=== PATIENT | male | born 1970 | race Caucasian/White ===

== ENCOUNTER 2020-06-23 16:00 | Outpatient (CLI) | payer BC, SELFPAY ==
--- NOTE | ~2020-06-23 | XR_ITS ---
EXAMINATION: XR knee RT min 4V EXAM DATE: 06/23/2020 16:26 INDICATION: No known recent injury provided at this time. Pain of the right knee. TECHNIQUE: Right knee lateral, frontal AP, frontal PA tunnel, sunrise projections. There is no prior study for comparison. FINDINGS: No evidence osteochondral defect or joint body in the right knee joint. No joint effusio n. There are no acute fractures or dislocations identified. There is no subcutaneous gas. The soft tissue is unremarkable. There are no radiopaque foreign bodies. Joint spaces are maintained. IMPRESSION: 1. Unremarkable right knee exam. Reviewed, dictated and finalized at location A.
== END 2020-06-23 16:01 | disposition home or self-care (01) ==
PROVIDERS: PCP Internal Medicine; Visit Provider Internal Medicine
DX: M25.561 Pain in right knee (principal)
CPT/HCPCS: 73564

== ENCOUNTER 2023-07-30 14:03 | Outpatient (NON) | payer BC, SELFPAY | END 2023-07-30 14:04 | disposition home or self-care (01) | LOC: ANHLAB 07-31 14:05 | PROVIDERS: PCP Internal Medicine; Visit Provider Nurse Practitioner | DX: D48.5 Neoplasm of uncertain behavior of skin (principal); D22.39 Melanocytic nevi of other parts of face; L57.0 Actinic keratosis | CPT/HCPCS: 88305 ==

== ENCOUNTER 2023-07-31 08:04 | Outpatient (CLI) | payer BC, SELFPAY ==
--- NOTE | ~2023-07-31 | CT_ITS ---
EXAMINATION: CT abdomen pelvis w con INDICATION: Unspecified abdominal pain TECHNIQUE: Computed tomographic images of the abdomen and pelvis were obtained after the administrati on of 100 cc of Omnipaque 350 intravenous contrast. The dose-length product (DLP) was 1098.62 mGy-cm. Automated exposure control and iterative reconstruction technique were employed. COMPARISON: None available FINDINGS: Minimal dependent atelectasis is present in the lung bases. The heart size is normal. There is a 3 mm nodule of the right middle lobe. There is calcified coronary artery atherosclerosis. Mild bilateral gynecomastia is noted. The liver is diffusely low in attenuation when compared with the spl een, consistent with hepatic steatosis. The spleen, pancreas, gallbladder, and adrenal glands are nor mal. Cysts of the kidneys measure up to 10 mm on the right. The appendix is normal. No pathologically enlarged abdominal or pelvic lymph nodes are identified. No free intraperitoneal gas or evidence of bowel obstruction. Colonic diverticulosis is present without evidence of diverticulitis. There is mil d lumbar spondylosis. There is a 10 mm x 6 mm focus of enhancement in the right iliac is muscle of un clear significance (image 185), possibly reflecting prior trauma. IMPRESSION: 1. No CT correlate for the patient's symptoms. Reviewed, dictated and finalized at location F. [employer]IN[employer]
[2023-07-31 08:51] LABS: Estimated Glomerular Filt Rate > 60
== END 2023-07-31 08:05 | disposition home or self-care (01) ==
PROVIDERS: PCP Internal Medicine; Visit Provider Internal Medicine
DX: R10.9 Unspecified abdominal pain (principal); R19.7 Diarrhea, unspecified
CPT/HCPCS: 74177; Q9967

== ENCOUNTER 2023-08-20 07:00 | Outpatient (NON) | payer BC, SELFPAY | END 2023-08-20 07:01 | disposition home or self-care (01) | PROVIDERS: PCP Internal Medicine; Visit Provider Nurse Practitioner | DX: L57.8 Other skin changes due to chronic exposure to nonionizing radiation (principal) | CPT/HCPCS: 88305 ==

== ENCOUNTER 2023-11-06 07:57 | Outpatient (CLI) | payer BC, SELFPAY ==
--- NOTE | ~2023-11-06 | XR_ITS ---
Left Knee Technique: AP, lateral, and sunrise views were obtained. Clinical History: Pain Findings: No fracture or dislocation is seen. Osseous alignment is anatomic. Joint spaces are preserv ed without degenerative or erosive change. Soft tissues are unremarkable. No joint effusion is seen. Impression: Unremarkable left knee radiographs. Reviewed, dictated and finalized at location . T SEALER Impression: Unremarkable left knee radiographs.
== END 2023-11-06 07:58 | disposition home or self-care (01) ==
PROVIDERS: PCP Internal Medicine; Visit Provider Internal Medicine
DX: M25.462 Effusion, left knee (principal)
CPT/HCPCS: 73562

== ENCOUNTER 2024-10-30 07:50 | Outpatient (CLI) | payer BC, SELFPAY ==
--- NOTE | ~2024-10-30 | XR_ITS ---
EXAMINATION: XR UGIAC w barium swallow DATE: 10/30/2024 08:58 INDICATION: Generalized abdominal pain TECHNIQUE: The patient drank thick barium, gas-producing crystals, and thin barium. Fluoroscopic spot radiographs of the hypopharynx, esophagus, stomach and proximal small bowel were obtained. A total o f 1184 images were recorded. Fluoroscopy exposure time was 1.7 minutes. Total DAP was 14.035 Gycm^2 COMPARISON: None. FINDINGS: The pharynx is symmetric and without evidence of mass lesion or mucosal irregularity. The esophagus i s normal without mass or stricture. Esophageal motility is normal. There is no hiatal hernia. There w as no gastroesophageal reflux with provocative maneuvers. The stomach and proximal small bowel are no rmal. IMPRESSION: 1. Normal esophagram and upper GI study. Reviewed, dictated and finalized at location A. CIATE CURATOR
--- OUTSIDE RECORDS SUMMARY | 2024-10-30 07:56 | XMS_ITS | Referral Summary ---
Author Organization [facility] Address [address] [place] [address] Care Team Providers Care Flavorings Compounder Name Role Phone Jayant Flores MD Primary Care Provider [phone] Allergies No known active allergies Medications cabergoline (DOSTINEX) 0.5 mg tablet Take 0.5 mg by mouth 2 (two) times a week Saturday and Saturday 1 Active diltiazem (TIAZAC) 240 mg 24 hr capsule Take 480 mg by mouth nightly Active Synthroid 175 mcg tablet Take 175 mcg by mouth every morning 1 Active losartan (COZAAR) 100 mg tablet Take 100 mg by mouth nightly 1 Active omeprazole (PriLOSEC) 20 mg capsule Take 20 mg by mouth nightly 1 Active rosuvastatin (CRESTOR) 10 mg tablet Take 10 mg by mouth nightly 1 Active Active Problems No known active problems Social History Tobacco Use Types Packs/Day Years Used Date Smoking Tobacco: Unknown Sex and Gender Information Value Date Recorded Sex Assigned at Not on file Legal Sex Male 6:00 PM 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 Gender Identity Not on file Sexual Orientation Not on file Last Filed Vital Signs Vital Sign Reading Time Taken Comments Blood Pressure 122/93 08/30/2021 1:22 PM [employer]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 Pulse 70 08/30/2021 1:22 PM [employer]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 Temperature 36.7 C (98.1 F) 08/30/2021 9: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
--- OUTSIDE RECORDS SUMMARY | 2024-10-30 07:56 | XMS_ITS | Patient Health Summary ---
Author Organization [facility] Address [address] [place] [address] Care Team Providers Care Machine Straw Hat Presser Name Role Phone Juliana Tran MD Primary Care Provider [phone] Arlene Smith APRN-REALTIME REPORTER Unavailable Note from [facility],non-owned Affiliates and Associated Physician Practices is amultiple site organization consisting of ambulatory clinics and hospital sitesin [place], [place], [place] and [place]. This disclosure is being madepursuant to the Care Everywhere program and may not contain all information available regarding this patient. Last updated 18.[facility] Allergies * Lisinopril(Cough) -Medium Criticality Medications * Be aware that medications may not be up to date on this document. Alwaysverify current medications with the patient. * diltiazem coated beads 24hr (CARDIZEM CD) 240 MG capsule Take 1 (one) capsule by mouth once daily * omeprazole (PRILOSEC) 20 MG capsule Take 1 (one) capsule by mouth daily before breakfast * losartan (COZAAR) 100 MG tablet Take 1 (one) tablet by mouth once daily * cabergoline (DOSTINEX) 0.5 MG tablet(Started 07/06/2015) 1 tab twice a week 1 refill left * levothyroxine (SYNTHROID) 175 MCG tablet(Started 01/21/2017) Take 1 (one) tablet by mouth daily before breakfast * rosuvastatin (CRESTOR) 10 MG tablet(Started 07/17/2017) Take 1 (one) tablet by mouth at bedtime * testosterone (ANDROGEL) 20.25 MG/ACT (1.62%) gel(Started 04/14/2021) Use 3 (three) Pump as instructed once daily * cabergoline (Dostinex) 0.5 MG tablet(Started 07/01/2023) TAKE 1 TABLET EVERY 3 DAYS FOR DISORDER WITH ELEVATED LEVELS OF PROLACTIN IN THE BLOOD 4 refills by 06/30/2024 Active Problems Problem Noted Date Diagnosed Date 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 (FLUZONE; FLULAVAL; FLUARIX; AFLURIA QUADRIVALENT; 6MO+), 0.5 ML (IIV4)(Given 06/28/2020) Social History Tobacco Use Types Packs/Day Years Used Date Smoking Tobacco: Former Cigarettes Q uit: 10/14/2004 Smokeless Tobacco: Never Tobacco Cessation:Counseling Given: Not Answered Alcohol Use Standard Drinks/Week Comments Yes 0 (1 standard drink = 0.6 oz pur e alcohol) rarely Sex and Gender Information Value Date Recorded Sex Assigned at Not on file Gender Identity Not on file Sexual Orientation Not on file Last Filed Vital Signs Vital Sign Reading Time Taken Comments Blood Pressure 124/70 09/26/2023 9:13 AM ELECTRIC KNIFE OPERATOR Pulse 74 11/21/2014 6:29 PM CDT Temperature 36.7 C (98 F) 11/21/2014 6:29 PM CDT Respiratory Rate 18 11/21/2014 6:29 PM CDT Oxygen Saturation 99% 11/21/2014 6:29 PM CDT Inhaled Oxygen Concentration - - Weight 114.8 kg (253 lb) 09/26/2023 9:13 AM ELECTRIC KNIFE OPERATOR Height 182.9 cm (6') 09/26/2023 9:13 AM ELECTRIC KNIFE OPERATOR Body Mass Index 34.31 09/26/2023 9:13 AM ELECTRIC KNIFE OPERATOR Procedures * PROLACTIN(Performed 10/03/2023) Performed for Hyperprolactinemia (HCC), Pituitary macroadenoma (HCC), Acquired hypothyroidism, Malehypogonadism * CBC W AUTO DIFFERENTIAL(Performed 10/03/2023) Performed for Hyperprolactinemia (HCC), Pituitary macroadenoma (HCC), Acquired hypothyroidism, Malehypogonadism * PROSTATE SPECIFIC ANTIGEN SCREEN(Performed 10/03/2023) Performed for Hyperprolactinemia (HCC), Pituitary macroadenoma (HCC), Acquired hypothyroidism, Malehypogonadism * TESTOSTERONE TOTAL(Performed 10/03/2023) Performed for Hyperprolactinemia (HCC), Pituitary macroadenoma (HCC), Acquired hypothyroidism, Malehypogonadism * T4 FREE(Performed 10/03/2023) Performed for Hyperprolactinemia (HCC), Pituitary macroadenoma (HCC), Acquired hypothyroidism, Malehypogonadism * TSH(Performed 10/03/2023) Performed for Hyperprolactinemia (HCC), Pituitary macroadenoma (HCC), Acquired hypothyroidism, Malehypogonadism * COMPREHENSIVE METABOLIC PANEL(Performed 10/03/2023) Performed for Hyperprolactinemia (HCC), Pituitary macroadenoma (HCC), Acquired hypothyroidism, Malehypogonadism * CBC W AUTO DIFFERENTIAL(Performed 03/26/2023) Performed for Hyperprolactinemia (HCC), Pituitary macroadenoma (HCC), Acquired hypothyroidism, Malehypogonadism * TSH(Performed 03/26/2023) Performed for Hyperprolactinemia (HCC), Pituitary macroadenoma (HCC), Acquired hypothyroidism, Malehypogonadism * T4 FREE(Performed 03/26/2023) Performed for Hyperprolactinemia (HCC), Pituitary macroadenoma (HCC), Acquired hypothyroidism, Malehypogonadism * PROLACTIN(Performed 03/26/2023) Performed for Hyperprolactinemia (HCC), Pituitary macroadenoma (HCC), Acquired hypothyroidism, Malehypogonadism * PROSTATE SPECIFIC ANTIGEN SCREEN(Performed 03/26/2023) Performed for Hyperprolactinemia (HCC), Pituitary macroadenoma (HCC), Acquired hypothyroidism, Malehypogonadism * TESTOSTERONE TOTAL(Performed 03/26/2023) Performed for Hyperprolactinemia (HCC), Pituitary macroadenoma (HCC), Acquired hypothyroidism, Malehypogonadism * TESTOSTERONE TOTAL(Performed 04/16/2022) Performed for Hyperprolactinemia (HCC), Pituitary macroadenoma (HCC), Acquired hypothyroidism * PROLACTIN(Performed 04/16/2022) Performed for Hyperprolactinemia (HCC), Pituitary macroadenoma (HCC), Acquired hypothyroidism * T4 FREE(Performed 04/16/2022) Performed for Hyperprolactinemia (HCC), Pituitary macroadenoma (HCC), Acquired hypothyroidism * CBC W AUTO DIFFERENTIAL(Performed 04/16/2022) Performed for Acquired hypothyroidism, Male hypogonadism * TSH(Performed 04/16/2022) Performed for Hyperprolactinemia (HCC), Pituitary macroadenoma (HCC), Acquired hypothyroidism * T4 FREE(Performed 12/12/2021) Performed for Hyperprolactinemia (HCC), Acquired hypothyroidism, Hypogonadism in male * TSH(Performed 12/12/2021) Performed for Hyperprolactinemia (HCC), Acquired hypothyroidism, Hypogonadism in male * PROLACTIN(Performed 12/12/2021) Performed for Hyperprolactinemia (HCC), Acquired hypothyroidism, Hypogonadism in male * TESTOSTERONE TOTAL(Performed 12/12/2021) Performed for Hyperprolactinemia (HCC), Acquired hypothyroidism, Hypogonadism in male * PROSTATE SPECIFIC ANTIGEN SCREEN(Performed 12/12/2021) Performed for Hyperprolactinemia (HCC), Acquired hypothyroidism, Hypogonadism in male * PROLACTIN(Performed 05/04/2021) Performed for Hyperprolactinemia (HCC), Hypogonadism in male * PROSTATE SPECIFIC ANTIGEN SCREEN(Performed 05/04/2021) Performed for Hyperprolactinemia (HCC), Hypogonadism in male * LAB RESULTS ORDER(Performed 04/04/2021) * TESTOSTERONE TOTAL (EXTERNAL RESULT ENTRY)(Performed 04/04/2021) * TSH (EXTERNAL RESULT ENTRY)(Performed 04/04/2021) * PROSTATE SPECIFIC ANTIGEN SCREEN(Performed 09/29/2020) Performed for Pituitary macroadenoma (HCC), Hyperprolactinemia (HCC), Acquired hypothyroidism * CBC W AUTO DIFFERENTIAL(Performed 09/29/2020) Performed for Pituitary macroadenoma (HCC), Hyperprolactinemia (HCC), Acquired hypothyroidism * TESTOSTERONE TOTAL(Performed 09/29/2020) Performed for Pituitary macroadenoma (HCC), Hyperprolactinemia (HCC), Acquired hypothyroidism * T3 FREE(Performed 09/29/2020) Performed for Pituitary macroadenoma (HCC), Hyperprolactinemia (HCC), Acquired hypothyroidism * T4 FREE(Performed 09/29/2020) Performed for Pituitary macroadenoma (HCC), Hyperprolactinemia (HCC), Acquired hypothyroidism * TSH(Performed 09/29/2020) Performed for Pituitary macroadenoma (HCC), Hyperprolactinemia (HCC), Acquired hypothyroidism * PROLACTIN(Performed 09/29/2020) Performed for Pituitary macroadenoma (HCC), Hyperprolactinemia (HCC), Acquired hypothyroidism * T3 FREE(Performed 10/07/2019) Performed for Hyperprolactinemia (HCC), Acquired hypothyroidism * PROLACTIN(Performed 10/07/2019) Performed for Hyperprolactinemia (HCC) * TSH(Performed 10/07/2019) Performed for Hyperprolactinemia (HCC), Acquired hypothyroidism * T4 FREE(Performed 10/07/2019) Performed for Hyperprolactinemia (HCC), Acquired hypothyroidism * TESTOSTERONE TOTAL(Performed 10/07/2019) Performed for Hyperprolactinemia (HCC), Hypogonadism in male * CBC W AUTO DIFFERENTIAL(Performed 04/06/2019) Performed for Hyperprolactinemia (HCC), Pituitary macroadenoma (HCC), Acquired hypothyroidism, Hypogonadism in male * PROLACTIN(Performed 04/06/2019) Performed for Hyperprolactinemia (HCC), Pituitary macroadenoma (HCC), Acquired hypothyroidism, Hypogonadism in male * PROSTATE SPECIFIC ANTIGEN SCREEN(Performed 04/06/2019) Performed for Hyperprolactinemia (HCC), Pituitary macroadenoma (HCC), Acquired hypothyroidism, Hypogonadism in male * TESTOSTERONE TOTAL(Performed 04/06/2019) Performed for Hyperprolactinemia (HCC), Pituitary macroadenoma (HCC), Acquired hypothyroidism, Hypogonadism in male * TSH(Performed 04/06/2019) Performed for Hyperprolactinemia (HCC), Pituitary macroadenoma (HCC), Acquired hypothyroidism, Hypogonadism in male * TESTOSTERONE TOTAL(Performed 10/06/2018) Performed for Hyperprolactinemia (HCC) * PROLACTIN(Performed 10/06/2018) Performed for Hypogonadism in male * T4 FREE(Performed 10/06/2018) Performed for Acquired hypothyroidism * TSH(Performed 10/06/2018) Performed for Acquired hypothyroidism * MRI PITUITARY AND BRAIN WWO CONT(Performed 04/26/2018) Performed for Pituitary macroadenoma (HCC) * PROLACTIN(Performed 04/01/2018) Performed for Hyperprolactinemia (HCC) * TESTOSTERONE TOTAL(Performed 04/01/2018) Performed for Hyperprolactinemia (HCC), Pituitary macroadenoma (HCC), Hypogonadism male * T4 FREE(Performed 04/01/2018) Performed for Hyperprolactinemia (HCC) * TSH(Performed 04/01/2018) Performed for Hyperprolactinemia (HCC) * COMPREHENSIVE METABOLIC PANEL(Performed 04/01/2018) Performed for Hyperprolactinemia (HCC) * TSH(Performed 12/03/2017) Performed for Hypothyroidism, unspecified type * T4 FREE(Performed 12/03/2017) Performed for Hypothyroidism, unspecified type * TESTOSTERONE TOTAL(Performed 10/02/2017) Performed for Hypogonadism in male * PROLACTIN(Performed 10/02/2017) Performed for Hyperprolactinemia (HCC) * T4 FREE(Performed 10/02/2017) Performed for Acquired hypothyroidism * TSH(Performed 10/02/2017) Performed for Acquired hypothyroidism * PROLACTIN(Performed 04/01/2017) Performed for Hyperprolactinemia (HCC), Pituitary macroadenoma (HCC) * TESTOSTERONE TOTAL(Performed 04/01/2017) Performed for Pituitary macroadenoma (HCC), Hypogonadism in male * T4 FREE(Performed 04/01/2017) Performed for Pituitary macroadenoma (HCC), Acquired hypothyroidism * TSH(Performed 04/01/2017) Performed for Pituitary macroadenoma (HCC), Acquired hypothyroidism * COMPREHENSIVE METABOLIC PANEL(Performed 04/01/2017) Performed for Pituitary macroadenoma (HCC) * PROLACTIN(Performed 10/08/2016) Performed for Pituitary macroadenoma (HCC) * PROSTATE SPECIFIC ANTIGEN SCREEN(Performed 10/08/2016) Performed for Hypogonadism in male * TESTOSTERONE TOTAL(Performed 10/08/2016) Performed for Pituitary macroadenoma (HCC) * TSH(Performed 10/08/2016) Performed for Pituitary macroadenoma (HCC), Acquired hypothyroidism * T4 FREE(Performed 10/08/2016) Performed for Pituitary macroadenoma (HCC), Acquired hypothyroidism * COMPREHENSIVE METABOLIC PANEL(Performed 10/08/2016) Performed for Pituitary macroadenoma (HCC) * TESTOSTERONE TOTAL(Performed 03/20/2016) Performed for Pituitary macroadenoma (HCC) * PROLACTIN(Performed 03/20/2016) Performed for Pituitary macroadenoma (HCC) * CBC W AUTO DIFFERENTIAL(Performed 03/20/2016) Performed for Pituitary macroadenoma (HCC) * MRI BRAIN WWO CONTRAST(Performed 03/13/2016) Performed for Pituitary macroadenoma (HCC) * CREATININE BLOOD - POINT OF CARE (IP)(Performed 03/13/2016) * T4 FREE(Performed 10/11/2015) * TSH(Performed 10/11/2015) * CBC W AUTO DIFFERENTIAL(Performed 10/11/2015) Performed for Pituitary macroadenoma (HCC) * PROSTATE SPECIFIC ANTIGEN SCREEN(Performed 10/11/2015) Performed for Pituitary macroadenoma (HCC) * TESTOSTERONE TOTAL(Performed 10/11/2015) Performed for Pituitary macroadenoma (HCC) * PROLACTIN(Performed 10/11/2015) Performed for Pituitary macroadenoma (HCC) * CORTISOL BLOOD(Performed 06/30/2015) Performed for Pituitary macroadenoma (HCC) * ACTH(Performed 06/30/2015) Performed for Pituitary macroadenoma (HCC) * PROLACTIN(Performed 06/30/2015) Performed for Pituitary macroadenoma (HCC) * PROSTATE SPECIFIC ANTIGEN SCREEN(Performed 06/30/2015) Performed for Other testicular hypofunction * LAB RESULTS ORDER(Performed 03/18/2015) * LIPID PROFILE(Performed 09/16/2014) * PROLACTIN(Performed 09/16/2014) Performed for Benign Neoplasm Of Pituitary Gland And Craniopharyngeal Duct (Pouch) (Hcc), Other AndUnspecified Anterior Pituitary Hyperfunction (Hcc) * T4 FREE(Performed 09/16/2014) Performed for Unspecified hypothyroidism * TSH(Performed 09/16/2014) Performed for Unspecified hypothyroidism * T4 FREE(Performed 07/13/2014) Performed for Unspecified hypothyroidism * TSH(Performed 07/13/2014) Performed for Unspecified hypothyroidism * PROLACTIN(Performed 03/26/2014) Performed for Pituitary tumor * MRI BRAIN WWO CONTRAST(Performed 11/18/2013) Performed for Benign Neoplasm Of Pituitary Gland And Craniopharyngeal Duct (Pouch) (Hcc) * CREATININE BLOOD - POINT OF CARE (IP)(Performed 11/18/2013) * PROSTATE SPECIFIC ANTIGEN SCREEN(Performed 09/21/2013) * PROLACTIN(Performed 09/21/2013) * TESTOSTERONE TOTAL(Performed 09/21/2013) * LIPID PROFILE(Performed 09/21/2013) * COMPREHENSIVE METABOLIC PANEL(Performed 09/21/2013) * TSH+FREE T4(Performed 09/21/2013) * CBC W AUTO DIFFERENTIAL(Performed 09/21/2013) * PROLACTIN(Performed 11/25/2012) * CARDIAC RHYTHM STRIP ORDER(Performed 10/15/2012) * EXCISION MASS OR TUMOR HEAD/NECK/SCALP(Performed 10/14/2012) Performed for Tumor of soft tissue of neck * PATHOLOGY TISSUE EXAM (STL)(Performed 10/14/2012) Performed for Mass * MRI NECK SOFT TISSUE WWO CONT(Performed 09/24/2012) Performed for Lipoma of other skin and subcutaneous tissue * MRI BRAIN WWO CONTRAST(Performed 09/24/2012) Performed for Other and unspecified anterior pituitary hyperfunction (HCC) * CREATININE BLOOD - POINT OF CARE (IP)(Performed 09/24/2012) * MRI BRAIN WWO CONTRAST(Performed 10/16/2011) Performed for Benign neoplasm of pituitary gland and craniopharyngeal duct (pouch) (HCC) * CREATININE BLOOD - POINT OF CARE (IP)(Performed 10/16/2011) * ACT - POINT OF CARE(Performed 10/16/2011) * LAB HISTORICAL RESULTS-ONBASE(Performed 07/26/2011) * LAB HISTORICAL RESULTS-ONBASE(Performed 07/26/2011) * LAB HISTORICAL RESULTS-ONBASE(Performed 07/26/2011) * MRI BRAIN WWO CONTRAST(Performed 08/15/2010) Performed for Other and unspecified anterior pituitary hyperfunction (HCC) * CREATININE BLOOD - POINT OF CARE (IP)(Performed 08/15/2010) * MRI BRAIN WWO CONTRAST(Performed 01/05/2010) Performed for Benign Neoplasm of Pituitary Gland and Craniopharyngeal Duct (Pouch) (HCC) * MRI BRAIN WWO CONTRAST(Performed 06/09/2009) Performed for Benign Asad Pituitary * CT IAC WO CONTRAST(Performed 06/09/2009) Performed for Benign Asad Pituitary * EVOKED POTENTIAL RESPONSE(Performed 12/30/2008) * VISUAL EVOKED POTENTIAL TEST(Performed 12/29/2008) Results * TESTOSTERONE TOTAL (10/03/2023 8:42 AM ELECTRIC KNIFE OPERATOR) Only the most recent of15 resultswithin the time period is included. Testosterone 270 264 - 916 ng/dL [facility] ACCOUNT BILL Comment: Adult male reference interval is based on a population of healthy nonobese males (BMI <30) between 19 and 39 years old. elaine Leal.al. JCEM 2017,102;6267-2888. PMID: [id number]. FASTING Blood BLOOD SPECIMEN / Unknown 10/03/2023 8:42 AM ELECTRIC KNIFE OPERATOR 10/03/2023 Narrative Resulting Agency Comment Lab Testing performed at: [facility] [address] [phone] Minoo Craft MD LAB - CHEMISTRY ORD ERABLES Performing Organization Address City/[facility] Co de Phone Number [facility] ACCOUNT BILL [address] [place] [address] * (ABNORMAL) PROLACTIN (10/03/2023 8:42 AM ELECTRIC KNIFE OPERATOR) Only the most recent of20 resultswithin the time period is included. Prolactin 26.8(H) 3.6 - 25.2 ng/mL [facility] ACCOUNT BILL Comment:FASTING Blood BLOOD SPECIMEN / Unknown 10/03/2023 8:42 AM ELECTRIC KNIFE OPERATOR 10/03/2023 Narrative Resulting Agency Comment Lab Testing performed at: [facility] [address] [phone] Minoo Craft MD LAB - CHEMISTRY ORD ERABLES Performing Organization Address [facility] Co de Phone Number [facility] ACCOUNT BILL [address] [place] [address] * CBC WITH DIFFERENTIAL (10/03/2023 8:42 AM ELECTRIC KNIFE OPERATOR) Only the most recent of8 resultswithin the time period is included. WBC 5.1 3.4 - 10.8 x10E3/uL [facility] ACCOUNT BILL RBC 4.76 4.14 - 5.80 x10E6/uL [facility] ACCOUNT BILL Hemoglobin 14.5 13.0 - 17.7 g/dL [facility] ACCOUNT BILL Hematocrit 42.5 37.5 - 51.0 % [facility] ACCOUNT BILL MCV 89 79 - 97 fL [facility] ACCOUNT BILL MCH 30.5 26.6 - 33.0 pg [facility] ACCOUNT BILL MCHC 34.1 31.5 - 35.7 g/dL [facility] ACCOUNT BILL RDW 12.7 11.6 - 15.4 % [facility] ACCOUNT BILL Platelet Count 304 150 - 450 x10E3/uL [facility] ACCOUNT BILL Granulocytes % 52 Not Estab. % [facility] ACCOUNT BILL Lymphocytes % 34 Not Estab. % [facility] ACCOUNT BILL Monocytes % 11 Not Estab. % [facility] ACCOUNT BILL Eosinophils % 2 Not Estab. % [facility] ACCOUNT BILL Basophils % 1 Not Estab. % [facility] ACCOUNT BILL Immature Cells NOT AVAILABLE [facility] ACCOUNT BILL Comment:Result cannot be obt ained for this observation. Granulocytes Absolute 2.6 1.4 - 7.0 x10E3/uL [facility] ACCOUNT BILL Lymphocytes Absolute 1.7 0.7 - 3.1 x10E3/uL [facility] ACCOUNT BILL Monocytes Absolute 0.6 0.1 - 0.9 x10E3/uL [facility] ACCOUNT BILL Eosinophils Absolute 0.1 0.0 - 0.4 x10E3/uL [facility] ACCOUNT BILL Basophils Absolute 0.1 0.0 - 0.2 x10E3/uL [facility] ACCOUNT BILL Immature Granulocytes 0 Not Estab. % [facility] ACCOUNT BILL Immature Granulocytes Absolute 0.0 0.0 - 0.1 x10E3/uL [facility] ACCOUNT BILL nRBC NOT AVAILABLE [facility] ACCOUNT BILL Comment:Result cannot be obt ained for this observation. Comment Hematology NOT AVAILABLE [facility] ACCOUNT BILL Comment: FASTING Result cannot be obtained for this observation. Blood BLOOD SPECIMEN / Unknown 10/03/2023 8:42 AM ELECTRIC KNIFE OPERATOR 10/03/2023 Narrative Resulting Agency Comment Lab Testing performed at: [facility] [address] [facility] [phone] Minoo Craft MD LAB - HEMATOLOGY OR DERABLES [facility] ACCOUNT BILL [address] [place] [address] * (ABNORMAL) COMPREHENSIVE METABOLIC PANEL (10/03/2023 8:42 AM ELECTRIC KNIFE OPERATOR) Only the most recent of5 resultswithin the time period is included. Glucose 105(H) 70 - 99 mg/dL [facility] ACCOUNT BILL BUN 13 6 - 24 mg/dL [facility] ACCOUNT BILL Creatinine 1.39(H) 0.76 - 1.27 mg/dL [facility] ACCOUNT BILL eGFR by CKD-EPI 61 >59 mL/min/1.7 3 [facility] ACCOUNT BILL BUN/Creatinine Ratio 9 9 - 20 [facility] ACCOUNT BILL Sodium 139 134 - 144 mmol/L [facility] ACCOUNT BILL Potassium 4.4 3.5 - 5.2 mmol/L [facility] ACCOUNT BILL Chloride 101 96 - 106 mmol/L [facility] ACCOUNT BILL CO2 23 20 - 29 mmol/L [facility] ACCOUNT BILL Calcium 9.5 8.7 - 10.2 mg/dL [facility] ACCOUNT BILL Protein Total 7.0 6.0 - 8.5 g/dL [facility] ACCOUNT BILL Albumin 4.1 3.8 - 4.9 g/dL [facility] ACCOUNT BILL Globulin Total 2.9 1.5 - 4.5 g/dL [facility] ACCOUNT BILL Albumin/Globulin Ratio 1.4 1.2 - 2.2 [facility] ACCOUNT BILL Bilirubin Total 0.4 0.0 - 1.2 mg/dL [facility] ACCOUNT BILL Alkaline Phosphatase 76 44 - 121 IU/L [facility] ACCOUNT BILL AST 24 0 - 40 IU/L [facility] ACCOUNT BILL ALT 27 0 - 44 IU/L [facility] ACCOUNT BILL Comment:FASTING Blood BLOOD SPECIMEN / Unknown 10/03/2023 8:42 AM ELECTRIC KNIFE OPERATOR 10/03/2023 Narrative Resulting Agency Comment Lab Testing performed at: [facility] [address] [facility] [phone] Minoo Craft MD LAB - CHEMISTRY ORD ERABLES [facility] ACCOUNT BILL [address] [place] [address] * PROSTATE SPECIFIC ANTIGEN SCREEN (10/03/2023 8:42 AM ELECTRIC KNIFE OPERATOR) Only the most recent of10 resultswithin the time period is included. PSA 1.5 0.0 - 4.0 ng/mL [facility] ACCOUNT BILL Comment: Leila ECLIA methodology. . According to the [employer], Serum PSA should decrease and remain at undetectable levels after radical prostatectomy. The AUA defines biochemical recurrence as an initial PSA value 0.2 ng/mL or greater followed by a subsequent confirmatory PSA value 0.2 ng/mL or greater. Values obtained with different assay methods or kits cannot be used interchangeably. Results cannot be interpreted as absolute evidence of the presence or absence of malignant disease. FASTING Blood BLOOD SPECIMEN / Unknown 10/03/2023 8:42 AM ELECTRIC KNIFE OPERATOR 10/03/2023 Narrative Resulting Agency Comment [facility] [address] [facility] [phone] Minoo Craft MD LAB - CHEMISTRY ORD ERABLES [facility] ACCOUNT BILL [address] [place] [address] * TSH (10/03/2023 8:42 AM ELECTRIC KNIFE OPERATOR) Only the most recent of16 resultswithin the time period is included. TSH 2.810 0.450 - 4.500 uIU/mL [facility] ACCOUNT BILL Comment:FASTING Blood BLOOD SPECIMEN / Unknown 10/03/2023 8:42 AM ELECTRIC KNIFE OPERATOR 10/03/2023 Narrative Resulting Agency Comment Lab Testing performed at: [facility] [place] [facility] [phone] Minoo Craft MD LAB - CHEMISTRY ORD ERABLES Performing Organization Address City/[facility] Co de Phone Number [facility] ACCOUNT BILL [address] [place] [address] * T4 FREE (10/03/2023 8:42 AM ELECTRIC KNIFE OPERATOR) Only the most recent of15 resultswithin the time period is included. T4 Free 1.33 0.82 - 1.77 ng/dL [facility] ACCOUNT BILL Comment:FASTING Blood BLOOD SPECIMEN / Unknown 10/03/2023 8:42 AM ELECTRIC KNIFE OPERATOR 10/03/2023 Narrative Resulting Agency Comment Lab Testing performed at: [facility] [address] [facility] [phone] Minoo Craft MD LAB - CHEMISTRY ORD ERABLES [facility] ACCOUNT BILL [address] [place] [address] * (ABNORMAL) TESTOSTERONE TOTAL (EXTERNAL RESULT ENTRY) (04/04/2021) Testosterone (EXTERNAL RESULT) 191(A) 225 - 972 NG/DL Blood BLOOD SPECIMEN / Unknown 04/04/2021 Juliana Tran MD LAB - CHEMISTRY VITOR BUI * TSH (EXTERNAL RESULT ENTRY) (04/04/2021) TSH (EXTERNAL RESULT) 1.100 uIU/mL Blood BLOOD SPECIMEN / Unknown 04/04/2021 Juliana Tran MD LAB - CHEMISTRY VITOR BUI * LAB RESULTS ORDER (04/04/2021) Only the most recent of2 resultswithin the time period is included. Juliana Tran MD LAB - THERAPEUTIC DR PIEDRA MONITORING ORDERABLES * T3 FREE (09/29/2020 9:10 AM ELECTRIC KNIFE OPERATOR) Only the most recent of2 resultswithin the time period is included. T3 Free 3.6 2.0 - 4.4 pg/mL [facility] ACCOUNT BILL Comment:FASTING Blood BLOOD SPECIMEN / Unknown 09/29/2020 9:10 AM ELECTRIC KNIFE OPERATOR 09/29/2020 Narrative Resulting Agency Comment Lab Testing performed at: [facility] [place] [address] [facility] [phone] Minoo Craft MD LAB - CHEMISTRY ORD ERABLES [facility] ACCOUNT BILL [address] [place] [address] * MRI PITUITARY AND BRAIN WWO CONT (04/26/2018 8:32 AM CDT) Anatomical Region Laterality Modality Magnetic Resonan ce 04/26/2018 4:21 PM CDT Impressions 04/26/2018 4:32 PM CDT 1. Atrophic pituitary. The previously seen mass is no longer present. 2. Minimal microangiopathy. Reading Radiologist: Prudencio Alves MD on 04/26/2018 at 4:32 PM Narrative 04/26/2018 4:32 PM CDT MRI brain and pituitary with and without contrast DATE: 04/26/2018. INDICATION: Follow-up prolactinoma. TECHNIQUE: Multiplanar, multisequence pre and post linear nonenhanced brain MRI with additional high-resolution pre and post enhanced images through the pituitary. 15 cc of intravenous Dotarem (gadoterate meglumine). COMPARISON: Multiple prior exams including 2015, 2013, 2009 and 2008. MRI BRAIN: There is no diffusion abnormality to indicate recent ischemia. Minimal microangiopathy is noted in the periventricular white matter. Most of the brain parenchyma has normal signal intensity and rodriguez-white differentiation is preserved. The midbrain, dena and cerebellum are unremarkable. Cerebellar tonsils are slightly low-lying and into the foramen magnum. There is no abnormal brain parenchymal or meningeal enhancement. Normal flow-voids are seen in the large skull base vessels. There is trace mucosal thickening in the paranasal sinuses. The mastoid sinuses are clear. The globes and retro-orbital soft tissues are unremarkable. High-resolution images of the pituitary demonstrate a significantly atrophic gland. The pituitary stalk is still deviated towards the left. The roof of the gland is concave. The adjacent cavernous sinuses are unremarkable. The optic chiasm remains somewhat displaced inferiorly into the pituitary fossa. The previously seen pituitary mass in 2009 and 2008 is longer identified. Procedure Note Prudencio Alves MD - 04/26/2018 MRI brain and pituitary with and without contrast DATE: 04/26/2018. INDICATION: Follow-up prolactinoma. TECHNIQUE: Multiplanar, multisequence pre and post linear nonenhanced brain MRI with additional high-resolution pre and post enhanced images through the pituitary. 15 cc of intravenous Dotarem (gadoterate meglumine). COMPARISON: Multiple prior exams including 2015, 2013, 2009 and 2008. MRI BRAIN: There is no diffusion abnormality to indicate recent ischemia. Minimal microangiopathy is noted in the periventricular white matter. Most of the brain parenchyma has normal signal intensity and rodriguez-white differentiation is preserved. The midbrain, dena and cerebellum are unremarkable. Cerebellar tonsils are slightly low-lying and into the foramen magnum. There is no abnormal brain parenchymal or meningeal enhancement. Normal flow-voids are seen in the large skull base vessels. There is trace mucosal thickening in the paranasal sinuses. The mastoid sinuses are clear. The globes and retro-orbital soft tissues are unremarkable. High-resolution images of the pituitary demonstrate a significantly atrophic gland. The pituitary stalk is still deviated towards the left. The roof of the gland is concave. The adjacent cavernous sinuses are unremarkable. The optic chiasm remains somewhat displaced inferiorly into the pituitary fossa. The previously seen pituitary mass in 2009 and 2008 is longer identified. IMPRESSION 1. Atrophic pituitary. The previously seen mass is no longer present. 2. Minimal microangiopathy. Reading Radiologist: Prudencio Alves MD on 04/26/2018 at 4:32 PM Minoo Craft MD MR ORDERABLES * MRI BRAIN WITH AND WITHOUT CONTRAST (03/13/2016 11:59 AM CDT) Only the most recent of7 resultswithin the time period is included. Anatomical Region Laterality Modality Head Magnetic Resonan ce 03/13/2016 3:09 PM CDT Impressions 03/13/2016 3:19 PM CDT 1. Unchanged pituitary adenoma. Narrative 03/13/2016 3:19 PM CDT EXAMINATION: Magnetic resonance imaging (MRI) of the brain without and with contrast HISTORY: Pituitary adenoma TECHNIQUE: MRI of the brain was performed prior to and following the intravenous administration of 20 mL Dotarem gadolinium contrast contrast according to standard protocol. FINDINGS: Comparison is to a prior study dated 11/18/2013. Next unchanged T2 hyperintense, hypoenhancing mass in the sella measuring 14 x 18 mm which displaces the pituitary stock to the left and posteriorly. The lesion abuts the chiasm but does not appear to displace it. No evidence of acute or chronic hemorrhage is identified. No evidence of acute cerebral infarction is seen. The ventricles are of normal size, shape, and morphology. The corpus callosum and sella appear normal. The posterior fossa, brainstem, and craniocervical junction appear normal. Procedure Note Elio Bauer MD - 03/13/2016 EXAMINATION: Magnetic resonance imaging (MRI) of the brain without and with contrast HISTORY: Pituitary adenoma TECHNIQUE: MRI of the brain was performed prior to and following the intravenous administration of 20 mL Dotarem gadolinium contrast contrast according to standard protocol. FINDINGS: Comparison is to a prior study dated 11/18/2013. Next unchanged T2 hyperintense, hypoenhancing mass in the sella measuring 14 x 18 mm which displaces the pituitary stock to the left and posteriorly. The lesion abuts the chiasm but does not appear to displace it. No evidence of acute or chronic hemorrhage is identified. No evidence of acute cerebral infarction is seen. The ventricles are of normal size, shape, and morphology. The corpus callosum and sella appear normal. The posterior fossa, brainstem, and craniocervical junction appear normal. IMPRESSION 1. Unchanged pituitary adenoma. Minoo Craft MD MR ORDERABLES * CREATININE BLOOD - POINT OF CARE (IP) (03/13/2016 11:20 AM CDT) Only the most recent of5 resultswithin the time period is included. Creatinine POCT 1.07 0.7 - 1.2 mg/dL [facility] POCT TEST[facility] QC Verified Yes Yes [facility] POC T TESTING Blood specimen (specimen) BLOOD SPECIMEN / Unknown 03/13/2016 11:20 AM CDT Minoo Craft MD LAB - POINT OF CARE ORDERABLES Performing Organization Address City/[facility] Co de Phone Number [facility] POCT TESTING [address] [phone] * ACTH (06/30/2015 3:30 PM CDT) ACTH 29.0 7.2 - 63.3 pg/mL [facility] INSURANCE BILL Comment:ACTH reference inter diamond for samples collected between 7 and 10 AM. Blood specimen (specimen) BLOOD SPECIMEN / Unknown 06/30/2015 3:30 PM CDT 06/30/2015 5:30 PM CDT Narrative Resulting Agency Comment [facility] [place] [address] [facility] [phone] Minoo Craft MD LAB - CHEMISTRY ORD ERABLES [facility] INSURANCE BILL * CORTISOL BLOOD (06/30/2015 3:30 PM CDT) Cortisol 9.4 2.3 - 19.4 ug/dL [facility] INSURANCE BILL Comment: Cortisol AM 6.2 - 19.4 Cortisol PM 2.3 - 11.9 Blood specimen (specimen) BLOOD SPECIMEN / Unknown 06/30/2015 3:30 PM CDT 06/30/2015 5:30 PM CDT Narrative Resulting Agency Comment [id number] [phone] Minoo Craft MD LAB - CHEMISTRY ORD ERABLES Performing Organization Address City/[facility]/ZIP Co de Phone Number [facility] INSURANCE BILL * LIPID PROFILE (09/16/2014 8:13 AM ELECTRIC KNIFE OPERATOR) Only the most recent of2 resultswithin the time period is included. Cholesterol 122 100 - 199 mg/dL [facility] ACCOUNT BILL Triglycerides 63 0 - 149 mg/dL [facility] ACCOUNT BILL HDL Cholesterol 54 >39 mg/dL [facility] ACCOUNT BILL Comment: According to ATP-III Guidelines, HDL-C >59 mg/dL is considered a negative risk factor for CHD. VLDL Calculated 13 5 - 40 mg/dL [facility] ACCOUNT BILL LDL Calculated 55 0 - 99 mg/dL [facility] ACCOUNT BILL Comment NOT NEEDED [facility] ACCOUNT BILL Comment:Ancillary determined the test is not needed 09/16/2014 8:13 AM ELECTRIC KNIFE OPERATOR 09/16/2014 2:43 PM ELECTRIC KNIFE OPERATOR Narrative [facility] ACCOUNT BILL - 09/17/2014 4:07 AM ELECTRIC KNIFE OPERATOR A courtesy copy of this report has been sent to [phone]. Resulting Agency Comment [facility] [address] [facility] [phone] Minoo Craft MD LAB - CHEMISTRY ORD ERABLES [facility] ACCOUNT BILL * (ABNORMAL) TSH+FREE T4 (PO REF LAB) (09/21/2013 8:15 AM ELECTRIC KNIFE OPERATOR) TSH 5.560(H) 0.450 - 4.500 uIU/mL [facility] INSURANCE BILL T4 Free 1.30 0.82 - 1.77 ng/dL [facility] INSURANCE BILL 09/21/2013 8:15 AM ELECTRIC KNIFE OPERATOR 09/21/2013 12:58 PM ELECTRIC KNIFE OPERATOR Narrative [facility] INSURANCE BILL - 09/22/2013 8:10 AM ELECTRIC KNIFE OPERATOR A courtesy copy of this report has been sent to [phone]. Resulting Agency Comment [facility] [address] [phone] Dada Reynoso MD LAB - CHEMISTRY ORDERABLES [facility] INSURANCE BILL * CARDIAC RHYTHM STRIP ORDER (10/15/2012 1:06 PM ELECTRIC KNIFE OPERATOR) Narrative 10/15/2012 1:06 PM ELECTRIC KNIFE OPERATOR Procedure Note Document, Scanned - 10/15/2012 1:06 PM CST Scanned Document CARDIAC SERVICES ORD ERABLES * GROSS + MICRO EXAM (STL) (10/14/2012 2:30 PM ELECTRIC KNIFE OPERATOR) Case Report Surgical Pathology Report Case: [id number] Authorizing Provider: Isak Verduzco MD Ordering Provider: Isak Verduzco MD Ordering Location: [facility] Collected: 10/14/2012 2:30 PM Pathologist: Mandy Kirby MD Received: 10/15/2012 7:44 AM Signed Out: 10/16/2012 11:42 AM (Final) Specimen: Neck Mass, posterior 10/16/2012 11:42 AM ELECTRIC KNIFE OPERATOR [facility] Final Diagnosis Soft tissue, posterior neck, excision: - Consistent with lipoma. KL/mal 10/16/2012 11:42 AM ELECTRIC KNIFE OPERATOR [facility] Clinical History Mass posterior neck 10/16/2012 11:[address] [facility] Gross Description Received in formalin in a container labeled, Ursula Mckay, mass, neck, posterior . The container holds a 5.2 x 5 x 4.1 cm thinly encapsulate yellow-barros lobular soft tissue mass. Section shows a yellow-barros fatty cut surface. There are no areas of hemorrhage or necrosis grossly identified. Retreader sections are submitted in cassettes A1 and A2. DYT/na 10/16/2012 11:[address] [facility] Microscopic Description Histologic sections show mature adipose tissue consistent with lipoma. There is no evidence of malignancy. KL/mal 10/16/2012 11:[address] [facility] Synoptic Report 10/16/2012 11:[address] [facility] Miscellaneous samples (specimen) MASS OF NECK / Unknown 10/14/2012 2:30 PM ELECTRIC KNIFE OPERATOR 10/15/2012 7:44 AM ELECTRIC KNIFE OPERATOR Isak Verduzco MD LAB - PATHOLOGY/CY TOLOGY ORDERABLES [facility] [address] [facility] [place] [address] * MRI SOFT TISSUE NECK W WO CONT (09/24/2012 2:20 PM ELECTRIC KNIFE OPERATOR) Anatomical Region Laterality Modality Head Magnetic Resonan ce Angiography 09/24/2012 2:29 PM ELECTRIC KNIFE OPERATOR Impressions 09/24/2012 2:29 PM ELECTRIC KNIFE OPERATOR Increase size of left posterior neck lipoma. Narrative 09/24/2012 2:29 PM ELECTRIC KNIFE OPERATOR Exam: MRI soft tissue neck without without contrast Date: 09/24/2012 History: Neck lipoma Technique: Multiplanar, multisequence Contrast: 20 cc Omniscan Findings: Comparison with prior study of 04/09/2008 is made. The previously noted oval shaped fat containing structure without significant enhancement in the left posterior soft tissues of the neck now measures 4.5 x 2.0 x 5.3 cm. It is located posterior lateral to C4-C6. On the prior study it measured 1.8 x 0.8 x 2.8 cm. A few septations are noted in the structure. Abnormal signal or enhancement is noted in the adjacent musculature. The cervical spine demonstrate normal marrow signal. Procedure Note Rambo Vo MD - 09/24/2012 Exam: MRI soft tissue neck without without contrast Date: 09/24/2012 History: Neck lipoma Technique: Multiplanar, multisequence Contrast: 20 cc Omniscan Findings: Comparison with prior study of 04/09/2008 is made. The previously noted oval shaped fat containing structure without significant enhancement in the left posterior soft tissues of the neck now measures 4.5 x 2.0 x 5.3 cm. It is located posterior lateral to C4-C6. On the prior study it measured 1.8 x 0.8 x 2.8 cm. A few septations are noted in the structure. Abnormal signal or enhancement is noted in the adjacent musculature. The cervical spine demonstrate normal marrow signal. IMPRESSION Increase size of left posterior neck lipoma. Juliana Tran MD MR ORDERABLES * ACT - POINT OF CARE (10/16/2011 2:34 PM ELECTRIC KNIFE OPERATOR) [facility] ACT POCT 125 - 187 Seconds [facility] POCT TESTING Comment:this test ordered in error see POC blood cratinine test QC Verified Yes [facility] POC T TESTING Blood specimen (specimen) BLOOD SPECIMEN / Unknown 10/16/2011 2:34 PM ELECTRIC KNIFE OPERATOR Dada Reynoso MD LAB - POINT OF CARE ORDERABLES Performing Organization Address City/[facility] Co de Phone Number [facility] [place] [address] * LAB HISTORICAL RESULTS-ONBASE (07/26/2011) Only the most recent of3 resultswithin the time period is included. 07/26/2011 Historical Provider LAB - CHEMISTRY O RDERABLES Performing Organization Address City/State/[facility] Co de Phone Number [facility] * CT IAC NON CONTRAST (06/09/2009 11:30 AM CDT) Anatomical Region Laterality Modality Head Other 06/09/2009 11:3 0 AM CDT Narrative 06/09/2009 2:52 PM CDT MRI pituitary, with and without contrast DATE- 06/09/2009. INDICATION- Followup pituitary mass. TECHNIQUE- Multiplanar, multisequence pre and post gadolinium enhanced thin section high resolution pituitary MRI. A routine brain scan was performed at the same time but is reported separately. 20 cc of intravenous Omniscan. FINDINGS- Since 12/30/2008, the pituitary mass has decreased in size. Currently the mass measures 3.1 x 1.8 x 2.3 cm and previously (in the same planes) measured 3.6 x 2.9 x 2.7 cm. Most of the mass enhances homogeneously but there is a cystic area in the left superior aspect of the gland which has decreased in size. There is also an area of increased enhancement in the right posterior gland which is unchanged in size. There is slightly less mass effect on the cavernous carotids. The right cavernous carotid remains encased but is not compressed. The left cavernous is displaced laterally. The pituitary stalk is still displaced towards the left. The adjacent basilar cisterns and sphenoid sinus remain clear. IMPRESSION- Decreased size of large pituitary mass. Diminished mass effect on the optic nerves and cavernous carotids. Reading Radiologist- PRUDENCIO ALVES M.D. Releasing Radiologist- PRUDENCIO ALVES M.D. Released Date Time- 06/09/09 1452 Zipper Lining Folder- ZAIDA DADA CHIU- DADA REYNOSO REF- DADA REYNOSO- RODRIGUEZ- JULIANA TRAN MOHAMMAD R Procedure Note Prudencio Alves MD - 06/09/2009 MRI pituitary, with and without contrast DATE- 06/09/2009. INDICATION- Followup pituitary mass. TECHNIQUE- Multiplanar, multisequence pre and post gadolinium enhanced thin section high resolution pituitary MRI. A routine brain scan was performed at the same time but is reported separately. 20 cc of intravenous Omniscan. FINDINGS- Since 12/30/2008, the pituitary mass has decreased in size. Currently the mass measures 3.1 x 1.8 x 2.3 cm and previously (in the same planes) measured 3.6 x 2.9 x 2.7 cm. Most of the mass enhances homogeneously but there is a cystic area in the left superior aspect of the gland which has decreased in size. There is also an area of increased enhancement in the right posterior gland which is unchanged in size. There is slightly less mass effect on the cavernous carotids. The right cavernous carotid remains encased but is not compressed. The left cavernous is displaced laterally. The pituitary stalk is still displaced towards the left. The adjacent basilar cisterns and sphenoid sinus remain clear. IMPRESSION- Decreased size of large pituitary mass. Diminished mass effect on the optic nerves and cavernous carotids. Reading Radiologist- PRUDENCIO ALVES M.D. Releasing Radiologist- PRUDENCIO ALVES M.D. Released Date Time- 06/09/09 1452 Zipper Lining Folder- AMD DADA CHIU- DADA REYNOSO REF- DADA REYNOSO [facility] JULIANA TRAN MOHAMMAD R Dada Reynoso MD CT ORDERABLES * EVOKED POTENTIAL RESPONSE (12/30/2008 8:44 AM CDT) Narrative Procedure Note Clemente Salmeron MD - 12/30/2008 [facility] PATIENT NAME: URSULA ROGERS MR#: [id number] ROOM#: OP SEX: M REFERRING PHYSICIAN: MANDIE SOUSA M.D.: 1970 DATE OF TEST: 12/29/08 E.P. NUMBER: This is a pattern shift visual evoked potential study performed on a 38 year old patient presented with blurred vision in the left eye. Bilateral visual evoked potential waveforms are well formed. The P100 latency is 133 on the left and 105 on the right. IMPRESSION: This abnormality suggests a conduction defect in the left optic nerve fibers anterior to the chiasm. Although demyelinating disease is the most common cause for this abnormality, one cannotexclude retinal lesions or neuronal compression. Clinical correlation issuggested. CLEMENTE SALMERON M.D. MP:aung Peña cc: MANDIE SOUSA M.D. Clemente Salmeron MD NEUROLOGY ORDERABLES Care Teams Machine Straw Hat Presser Relationship Specialty Start Date End Date Juliana Tran MD [address] [place] [phone] PCP - General 12/28/08 Arlene Smith, EMBEDDED LINUX ENGINEER-REALTIME REPORTER [address] [place] [phone] Nurse Practitioner 11/16/13
--- OUTSIDE RECORDS SUMMARY | 2024-10-30 07:56 | XMS_ITS | Referral Summary ---
Author Organization [facility] Address [address] [place] [address] Care Team Providers Care Button Breaker Name Role Phone Jayant Flores MD Primary Care Provider [phone] Arlene Smith APRN-INSURANCE SALES ASSOCIATE Unavailable Source Comments [facility],non-owned Affiliates and Associated Physician Practices is amultiple site organization consisting of ambulatory clinics and hospital sitesin [place], [place], [place] and [place]. This disclosure is being madepursuant to the Care Everywhere program and may not contain all information available regarding this patient. Last updated 18.[facility] Allergies Active Allergy Reactions Criticality Noted Date Comments Lisinopril Cough Medium 11/13/2011 Medications * Be aware that medications may not be up to date on this document. Alwaysverify current medications with the patient. Medication Sig Dispensed Refills Start Date End Date Status diltiazem coated beads 24hr (CARDIZEM CD) 240 MG capsule Take 1 (one) capsule by mouth once daily Active omeprazole (PRILOSEC) 20 MG capsule Take 1 (one) capsule by mouth daily before breakfast Active losartan (COZAAR) 100 MG tablet Take 1 (one) tablet by mouth once daily Active cabergoline (DOSTINEX) 0.5 MG tablet 1 tab twice a week 30 Tab 1 07/06/2015 Active levothyroxine (SYNTHROID) 175 MCG tablet Take 1 (one) tablet by mouth daily before breakfast 01/21/2017 Active rosuvastatin (CRESTOR) 10 MG tablet Take 1 (one) tablet by mouth at bedtime 07/17/2017 Active testosterone (ANDROGEL) 20.25 MG/ACT (1.62%) gel Use 3 (three) Pump as instructed once daily 04/14/2021 Active cabergoline (Dostinex) 0.5 MG tablet TAKE 1 TABLET EVERY 3 DAYS FOR DISORDER WITH ELEVATED LEVELS OF PROLACTIN IN THE BLOOD 24 tablet 4 07/01/2023 Active Active Problems Problem Noted Date Diagnosed Date 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 Initial dimensions: 3.6 x 2.9 x 2.7 cm, with left displacement of stalk. Initial prolactin >1700 Hyperprolactinemia 07/02/2013 Other testicular hypofunction 07/02/2013 Hypothyroidism 07/02/2013 Overview (06/09/2015): Immunizations Name Administration Dates Next Due INFLUENZA VACCINE, QUADR. (F LUZONE; FLULAVAL; FLUARIX; AFLURIA QUADRIVALENT; 6MO+), 0.5 ML (IIV4) 06/28/2020 Social History Tobacco Use Types Packs/Day Years [...] Comments Blood Pressure 124/70 09/26/2023 9:13 AM MUSIC ASSISTANT Pulse 74 11/21/2014 6:29 PM CDT Temperature 36.7 C (98 F) 11/21/2014 6:29 PM CDT Respiratory Rate 18 11/21/2014 6:29 PM CDT Oxygen Saturation 99% 11/21/2014 6:29 PM CDT Inhaled Oxygen Concentration - - Weight 114.8 kg (253 lb) 09/26/2023 9:13 AM MUSIC ASSISTANT Height 182.9 cm (6') 09/26/2023 9:13 AM MUSIC ASSISTANT Body Mass Index 34.31 09/26/2023 9:13 AM MUSIC ASSISTANT Plan of Treatment Not on file Procedures Procedure Name Priority Date/Time Associated Diagnosis Comments COMPREHENSIVE METABOLIC PANEL Routine 10/03/2023 8:42 AM MUSIC ASSISTANT Hyperprolactinemia (HCC) Pituitary macroadenoma (HCC) Acquired hypothyroidism Male hypogonadism from Last 3 Months or Most Recently Relevant to Health Maintenance Results * (ABNORMAL) COMPREHENSIVE METABOLIC PANEL (10/03/2023 8:42 AM MUSIC ASSISTANT) Glucose 105(H) 70 - 99 mg/dL [facility] [...] BLOOD SPECIMEN / Unknown 10/03/2023 8:42 AM MUSIC ASSISTANT 10/03/2023 Narrative Resulting Agency Comment Lab Testing performed at: [facility] [address] [phone] Minoo Craft MD LAB - CHEMISTRY ORD ERABLES [facility] ACCOUNT BILL [address] [place] [address] from Last 3 Months or Most Recently Relevant to Health Maintenance Care Teams Button Breaker Relationship Specialty Start Date End Date Jayant Flores MD [address] [place] [address] PCP - General 12/28/08 Arlene Smith, POWDER COAT PAINTER-INSURANCE SALES ASSOCIATE [facility], [facility] [address] [place] [address] Nurse Practitioner 11/16/13
--- OUTSIDE RECORDS SUMMARY | 2024-10-30 07:56 | XMS_ITS | Clinical Summary ---
Author Organization [facility] Address [address] [place] [address] Care Team Providers Care Networking Specialist Name Role Phone Jayant Flores MD Primary Care Provider [phone] Allergies No known active allergies Medications cabergoline [...] on file Legal Sex Male 6:00 PM STRUCTURAL STEEL TRADES WORKER Gender Identity Not on file Sexual Orientation Not on file Obstetrics History Last Filed Vital Signs Vital Sign Reading Time Taken Comments Blood Pressure 122/93 08/30/2021 1:22 PM STRUCTURAL STEEL TRADES WORKER Pulse 70 08/30/2021 1:22 PM STRUCTURAL STEEL TRADES WORKER Temperature 36.7 C (98.1 F) 08/30/2021 9:16 AM STRUCTURAL STEEL TRADES WORKER Respiratory Rate 12 08/30/2021 1:22 PM STRUCTURAL STEEL TRADES WORKER Oxygen Saturation 98% 08/30/2021 1:22 PM STRUCTURAL STEEL TRADES WORKER Inhaled Oxygen Concentration - - Weight 106.6 kg (235 lb) 06/05/2024 8:51 AM CDT Height 182.9 cm (6') 06/05/2024 8:51 AM CDT Body Mass Index 31.87 06/05/2024 8:51 AM CDT Plan of Treatment Health Maintenance Due Date Last Done Comments Colon Cancer Screening-Colonoscopy 1970 Depression Screening 1970 Hepatitis C Screening 1970 Prostate Cancer Screening-PSA 1971 DTaP/Tdap/Td Vaccine (1 - Tdap) 1982 Hepatitis B Screening 1989 Regular Well Visit/Exam 18-64 1989 Covid-19 Vaccine (3 - 2023-2 5 season) 2024 12/12/2020, 11/20/2020 Influenza Vaccine (#1) 2024 06/28/2020 Zoster Vaccine Completed 10/17/2022, 07/25/2022 Pneumococcal vaccine <65 Aged Out No longer eligible based on patient's age to complete this topic Insurance [employer] ACCESS Care Teams Networking Specialist Relationship Specialty Start Date End Date Jayant Flores MD [address] [facility] [address] [facility] [place] [phone] PCP - General Internal Medicine 08/30/21
--- OUTSIDE RECORDS SUMMARY | 2024-10-30 07:57 | XMS_ITS | Clinical Summary ---
Author Organization [facility] Address [facility] [place] [address] Care Team Providers Care Car Stereo Installer Name Role Phone Jayant Flores MD Primary Care Provider [phone] Social History Tobacco Use Types Packs/Day Years Used Date Smoking Tobacco: Never Assessed Sex and Gender Information Value Date Recorded Sex Assigned at Not on file Legal Sex Male 4:26 PM CDT Gender Identity Not on file Sexual Orientation Not on file Plan of Treatment Health Maintenance Due Date Last Done Comments Colorectal Cancer Screening Colonoscopy (10 Years) 1971 Annual Physical 1974 Hepatitis C 1989 DTaP, Tdap and Td Vaccines ( 1 - Tdap) 1990 Hepatitis B Vaccines (1 of 3 - 19+ 3-dose series) 1990 COVID-19 Vaccine (3 - 2023-2 5 season) 2024 12/12/2020, 11/20/2020 Influenza Adult (#1) 2024 06/28/2020 Zoster Vaccines Completed 10/17/2022, 07/25/2022 Meningococcal B Vaccine Aged Out No l onger eligible based on patient's age to complete this topic Meningococcal Vaccine Aged Out No roxanna maddi eligible based on patient's age to complete this topic Pneumococcal Vaccine: Pediatrics (0 to 5 Years) and At-Risk Patients (6 to 64 Years) Aged Out No longer eligible b ased on patient's age to complete this topic RSV Immunizations Under 20 Months Aged Out No longer eligible b ased on patient's age to complete this topic Insurance BLUE CROSS BLUE SHIELD Care Teams Car Stereo Installer Relationship Specialty Start Date End Date Jayant Flores MD [address] - [facility] [address] [place] [address] PCP - General INTERNAL MEDICINE 08/21/23
--- OUTSIDE RECORDS SUMMARY | 2024-10-30 07:57 | XMS_ITS | Clinical Summary ---
Author Organization [facility] Address [address] [address] Care Team Providers Care Train Dispatcher Name Role Phone Jayant Flores MD Primary Care Provider [phone] Arlene Smith APRN-TRAFFIC ATTENDANT Unavailable Source Comments [facility],non-owned Affiliates and Associated Physician Practices is amultiple site organization consisting of ambulatory clinics and hospital sitesin [place], [place], [place] and [place]. This disclosure is being madepursuant to the Care Everywhere program and may not contain all information available regarding this patient. Last updated 18.[facility] Allergies Active Allergy Reactions Criticality Noted Date [...] AFLURIA QUADRIVALENT; 6MO+), 0.5 ML (IIV4) 06/28/2020 Family History Medical History Relation Name Comments Hypercholesterolemia Mother Hypertension Mother Relation Name Status Comments Father Alive Mother Alive 4 Social History Tobacco Use Types Packs/Day Years [...] Comments Blood Pressure 124/70 09/26/2023 9:13 AM PROP MAKING SUPERVISOR Pulse 74 11/21/2014 6:29 PM CDT Temperature 36.7 C (98 F) 11/21/2014 6:29 PM CDT Respiratory Rate 18 11/21/2014 6:29 PM CDT Oxygen Saturation 99% 11/21/2014 6:29 PM CDT Inhaled Oxygen Concentration - - Weight 114.8 kg (253 lb) 09/26/2023 9:13 AM PROP MAKING SUPERVISOR Height 182.9 cm (6') 09/26/2023 9:13 AM PROP MAKING SUPERVISOR Body Mass Index 34.31 09/26/2023 9:13 AM PROP MAKING SUPERVISOR Plan of Treatment Health Maintenance Due Date Last Done Comments COLOGUARD (AGES 45-75) - COLON CA SCREENING 1971 COLON MONITORING 1971 COLONOSCOPY - COLON CA SCREENING 1971 CT COLONOGRAPHY - COLON CA SCREENING 1971 Colorectal Cancer Screening 1971 FIT - COLON CA SCREENING 1971 FLEX SIG - COLON CA SCREENING 1971 HIV SCREENING 1986 HEPATITIS C SCREENING 10/21/1989 DTAP/TDAP/TD VACCINES (1 - Tdap) 1990 HEPATITIS B VACCINE (1 of 3 - 19+ 3-dose series) 1990 PNEUMOCOCCAL VACCINE 50+ (1 of 1 - PCV) 2021 ZOSTER VACCINE (1 of 2) 2021 COVID-19 VACCINE (3 - season) 2024 12/12/2020, 11/20/2020 INFLUENZA VACCINE (#1) 2024 06/28/2020 DEPRESSION SCREENING 09/09/2024 SCREENING FOR DIABETES 10/03/2026 4, 04/01/2018, 04/01/2017, Additional history exists HIB VACCINE Aged Out No longer eligi ble based on patient's age to complete this topic HPV VACCINE Aged Out No longer eligi ble based on patient's age to complete this topic MENINGOCOCCAL (Group B) VACCINE Aged Out No longer eligible based on patient's age to complete this topic MENINGOCOCCAL VACCINE Aged Out No roxanna maddi eligible based on patient's age to complete this topic PNEUMOCOCCAL VACCINE Aged Out No long er eligible based on patient's age to complete this topic Procedures Procedure Name Priority Date/Time Associated Diagnosis Comments COMPREHENSIVE METABOLIC PANEL Routine 10/03/2023 8:42 AM PROP MAKING SUPERVISOR Hyperprolactinemia (HCC) Pituitary macroadenoma (HCC) Acquired hypothyroidism Male hypogonadism from Last 3 Months or Most Recently Relevant to Health Maintenance Results * (ABNORMAL) COMPREHENSIVE METABOLIC PANEL (10/03/2023 8:42 AM PROP MAKING SUPERVISOR) Glucose 105(H) 70 - 99 mg/dL [facility] [...] BLOOD SPECIMEN / Unknown 10/03/2023 8:42 AM PROP MAKING SUPERVISOR 10/03/2023 Narrative Resulting Agency Comment Lab Testing performed at: [facility] [address] [phone] Minoo Craft MD LAB - CHEMISTRY ORD ERABLES [facility] ACCOUNT BILL [address] [place] [address] from Last 3 Months or Most Recently Relevant to Health Maintenance Care Teams Train Dispatcher Relationship Specialty Start Date End Date Jayant Flores MD [address] [place] [phone] PCP - General 12/28/08 Arlene Smith, GEAR HOBBER SET UP OPERATOR-TRAFFIC ATTENDANT [address] [place] [address], [address] [place] [phone] Nurse Practitioner 11/16/13
== END 2024-10-30 07:51 | disposition home or self-care (01) ==
PROVIDERS: PCP Internal Medicine; Visit Provider Internal Medicine
DX: R10.84 Generalized abdominal pain (principal); R14.0 Abdominal distension (gaseous)
CPT/HCPCS: 74246

== ENCOUNTER 2024-11-05 09:15 | Outpatient (CLI) | payer BC, SELFPAY | END 2024-11-05 09:16 | disposition home or self-care (01) | PROVIDERS: PCP Internal Medicine; Visit Provider Internal Medicine | DX: K76.0 Fatty (change of) liver, not elsewhere classified (principal); R14.0 Abdominal distension (gaseous) | CPT/HCPCS: 76705 ==

== ENCOUNTER 2024-11-11 08:49 | Outpatient (CLI) | payer BC, SELFPAY ==
--- NOTE | ~2024-11-11 | NM_ITS ---
EXAMINATION: NM hepatobiliary w pharm DATE: 11/11/2024 12:00 INDICATION: Generalized abdominal pain. COMPARISON: CT abdomen and pelvis 07/31/2023, abdomen ultrasound 11/05/2024 TECHNIQUE: 5.2 mCi Tc-99m mebrofenin (Choletec) was administered intravenously. Scintigraphic images of the abdomen were obtained for one hour. Then, 2.2 mcg sincalide (Kinevac) IV was administered, an d imaging was continued for 30 minutes. FINDINGS: There is normal clearance of radiotracer from the blood pool. There is homogeneous tracer u ptake by the liver. Activity progresses to the bowel and gallbladder. Gallbladder ejection fraction (GBEF) was 87%. Note that most patients with gallbladder dysfunction have GBEF < 35%, which overlaps with the broad normal range of 10-90%. IMPRESSION: 1. Normal hepatobiliary scintigraphy. Reviewed, dictated and finalized at location A. ATION THERAPIST
--- OUTSIDE RECORDS SUMMARY | 2024-11-11 09:13 | XMS_ITS | Clinical Summary ---
Author Organization [facility] [employer] Address [address] [place] [address] Care Team Providers Care Tele Marketing Executive Name Role Phone Jayant Flores MD Primary Care Provider [phone] Arlene Smith APRN-FLOORING MECHANIC Unavailable Source Comments [facility] [employer],non-owned Affiliates and Associated Physician Practices is amultiple site organization consisting of ambulatory clinics and hospital sitesin [place], [place] and [place]. This disclosure is being madepursuant to the Care Everywhere program and may not contain all information available regarding this patient. Last updated 18.[facility] [employer] Allergies Active Allergy Reactions Criticality Noted Date [...] Comments Blood Pressure 124/70 09/26/2023 9:13 AM ALUMNAE SECRETARY Pulse 74 11/21/2014 6:29 PM CDT Temperature 36.7 C (98 F) 11/21/2014 6:29 PM CDT Respiratory Rate 18 11/21/2014 6:29 PM CDT Oxygen Saturation 99% 11/21/2014 6:29 PM CDT Inhaled Oxygen Concentration - - Weight 114.8 kg (253 lb) 09/26/2023 9:13 AM ALUMNAE SECRETARY Height 182.9 cm (6') 09/26/2023 9:13 AM ALUMNAE SECRETARY Body Mass Index 34.31 09/26/2023 9:13 AM ALUMNAE SECRETARY Plan of Treatment Health Maintenance Due Date [...] COMPREHENSIVE METABOLIC PANEL Routine 10/03/2023 8:42 AM ALUMNAE SECRETARY Hyperprolactinemia (HCC) Pituitary macroadenoma (HCC) Acquired hypothyroidism Male hypogonadism from Last 3 Months or Most Recently Relevant to Health Maintenance Results * (ABNORMAL) COMPREHENSIVE METABOLIC PANEL (10/03/2023 8:42 AM ALUMNAE SECRETARY) Glucose 105(H) 70 - 99 mg/dL [facility] [...] BLOOD SPECIMEN / Unknown 10/03/2023 8:42 AM ALUMNAE SECRETARY 10/03/2023 Narrative Resulting Agency Comment Lab Testing performed at: [facility] [address] [facility] [phone] Minoo Craft MD LAB - CHEMISTRY ORD ERABLES [facility] ACCOUNT BILL [address] [place] [address] from Last 3 Months or Most Recently Relevant to Health Maintenance Care Teams Tele Marketing Executive Relationship Specialty Start Date End Date Jayant Flores MD [address] [place] [phone] PCP - General 12/28/08 Arlene Smith, TREATING PLANT PUMPER-FLOORING MECHANIC [address] [place] [address], [address] [place] [phone] Nurse Practitioner 11/16/13
--- OUTSIDE RECORDS SUMMARY | 2024-11-11 09:13 | XMS_ITS | Patient Health Summary ---
Author Organization [facility] Address [address] [place] [address] Care Team Providers Care Embalmer Apprentice Name Role Phone Juliana Tarn MD Primary Care Provider [phone] Arlene Smith APRN-PRODUCTION BORING MACHINE OPERATOR Unavailable Note from [facility] [place],non-owned Affiliates and Associated Physician Practices is amultiple site organization consisting of ambulatory clinics and hospital sitesin [place], [place], [place] and [place]. This disclosure is being madepursuant to the Care Everywhere program and may not contain all information available regarding this patient. Last updated 18.[facility] Allergies * Lisinopril(Cough) -Medium Criticality Medications * [...] Comments Blood Pressure 124/70 09/26/2023 9:13 AM REHABILITATION COUNSELOR Pulse 74 11/21/2014 6:29 PM CDT Temperature 36.7 C (98 F) 11/21/2014 6:29 PM CDT Respiratory Rate 18 11/21/2014 6:29 PM CDT Oxygen Saturation 99% 11/21/2014 6:29 PM CDT Inhaled Oxygen Concentration - - Weight 114.8 kg (253 lb) 09/26/2023 9:13 AM REHABILITATION COUNSELOR Height 182.9 cm (6') 09/26/2023 9:13 AM REHABILITATION COUNSELOR Body Mass Index 34.31 09/26/2023 9:13 AM REHABILITATION COUNSELOR Procedures * PROLACTIN(Performed 10/03/2023) Performed for Hyperprolactinemia [...] Results * TESTOSTERONE TOTAL (10/03/2023 8:42 AM REHABILITATION COUNSELOR) Only the most recent of15 resultswithin the time period is included. Testosterone 270 264 - 916 ng/dL [facility] ACCOUNT BILL Comment: Adult male reference interval is based on a population of healthy nonobese males (BMI <30) between 19 and 39 years old. elaine Leal.al. JCEM 2017,102;8430-1213. PMID: [id number]. FASTING Blood BLOOD SPECIMEN / Unknown 10/03/2023 8:42 AM REHABILITATION COUNSELOR 10/03/2023 Narrative Resulting Agency Comment Lab Testing performed at: [facility] [address] [facility] [phone] Minoo Craft MD LAB - CHEMISTRY ORD ERABLES Performing Organization Address [facility] Co de Phone Number [facility] ACCOUNT BILL [address] [place] [address] * (ABNORMAL) PROLACTIN (10/03/2023 8:42 AM REHABILITATION COUNSELOR) Only the most recent of20 resultswithin the time period is included. Prolactin 26.8(H) 3.6 - 25.2 ng/mL [facility] ACCOUNT BILL Comment:FASTING Blood BLOOD SPECIMEN / Unknown 10/03/2023 8:42 AM REHABILITATION COUNSELOR 10/03/2023 Narrative Resulting Agency Comment Lab Testing performed at: [facility] [address] [phone] Minoo Craft MD LAB - CHEMISTRY ORD ERABLES Performing Organization Address [facility] Co de Phone Number [facility] ACCOUNT BILL [address] [place] [address] * CBC WITH DIFFERENTIAL (10/03/2023 8:42 AM REHABILITATION COUNSELOR) Only the most recent of8 resultswithin the [...] BLOOD SPECIMEN / Unknown 10/03/2023 8:42 AM REHABILITATION COUNSELOR 10/03/2023 Narrative Resulting Agency Comment Lab Testing performed at: [facility] [address] [facility] [phone] Minoo Craft MD LAB - HEMATOLOGY OR DERABLES [facility] ACCOUNT BILL [address] [place] [address] * (ABNORMAL) COMPREHENSIVE METABOLIC PANEL (10/03/2023 8:42 AM REHABILITATION COUNSELOR) Only the most recent of5 resultswithin the [...] BLOOD SPECIMEN / Unknown 10/03/2023 8:42 AM REHABILITATION COUNSELOR 10/03/2023 Narrative Resulting Agency Comment Lab Testing performed at: [facility] [address] [facility] [phone] Minoo Craft MD LAB - CHEMISTRY ORD ERABLES [facility] ACCOUNT BILL [address] [place] [address] * PROSTATE SPECIFIC ANTIGEN SCREEN (10/03/2023 8:42 AM REHABILITATION COUNSELOR) Only the most recent of10 resultswithin the time period is included. PSA 1.5 0.0 - 4.0 ng/mL [facility] ACCOUNT BILL Comment: Leila ECLIA methodology. . According to the [employer], Serum PSA should decrease and [...] BLOOD SPECIMEN / Unknown 10/03/2023 8:42 AM REHABILITATION COUNSELOR 10/03/2023 Narrative Resulting Agency Comment [facility] [address] [facility] [phone] Minoo Craft MD LAB - CHEMISTRY ORD ERABLES [facility] ACCOUNT BILL [address] [place] [address] * TSH (10/03/2023 8:42 AM REHABILITATION COUNSELOR) Only the most recent of16 resultswithin the time period is included. TSH 2.810 0.450 - 4.500 uIU/mL [facility] ACCOUNT BILL Comment:FASTING Blood BLOOD SPECIMEN / Unknown 10/03/2023 8:42 AM REHABILITATION COUNSELOR 10/03/2023 Narrative Resulting Agency Comment Lab Testing performed at: [facility] [phone] Minoo Craft MD LAB - CHEMISTRY ORD ERABLES Performing Organization Address [facility] Co de Phone Number [facility] ACCOUNT BILL [address] [place] [address] * T4 FREE (10/03/2023 8:42 AM REHABILITATION COUNSELOR) Only the most recent of15 resultswithin the time period is included. T4 Free 1.33 0.82 - 1.77 ng/dL [facility] ACCOUNT BILL Comment:FASTING Blood BLOOD SPECIMEN / Unknown 10/03/2023 8:42 AM REHABILITATION COUNSELOR 10/03/2023 Narrative Resulting Agency Comment [facility] [address] [facility] [phone] Minoo Craft MD LAB - CHEMISTRY ORD ERABLES [facility] ACCOUNT BILL [address] [place] [address] * (ABNORMAL) TESTOSTERONE TOTAL (EXTERNAL RESULT ENTRY) [...] ORDERABLES * T3 FREE (09/29/2020 9:10 AM REHABILITATION COUNSELOR) Only the most recent of2 resultswithin the time period is included. T3 Free 3.6 2.0 - 4.4 pg/mL [facility] ACCOUNT BILL Comment:FASTING Blood BLOOD SPECIMEN / Unknown 09/29/2020 9:10 AM REHABILITATION COUNSELOR 09/29/2020 Narrative Resulting Agency Comment Lab Testing performed at: [facility] [address] [facility] [phone] iMnoo Craft MD LAB - CHEMISTRY ORD ERABLES [facility] ACCOUNT BILL [address] [place] [address] * MRI PITUITARY AND BRAIN WWO CONT [...] POINT OF CARE ORDERABLES Performing Organization Address [facility] Co de Phone Number [facility] [address] [phone] * ACTH (06/30/2015 3:30 PM CDT) ACTH 29.0 7.2 - 63.3 pg/mL [facility] INSURANCE BILL Comment:ACTH reference inter diamond for samples collected between 7 and 10 AM. Blood specimen (specimen) BLOOD SPECIMEN / Unknown 06/30/2015 3:30 PM CDT 06/30/2015 5:30 PM CDT Narrative Resulting Agency Comment [facility] [address] [facility] [phone] Minoo Craft MD LAB - CHEMISTRY ORD ERABLES [facility] INSURANCE BILL * CORTISOL BLOOD (06/30/2015 3:30 PM CDT) Cortisol 9.4 2.3 - 19.4 ug/dL [facility] INSURANCE BILL Comment: Cortisol AM 6.2 - 19.4 Cortisol PM 2.3 - 11.9 Blood specimen (specimen) BLOOD SPECIMEN / Unknown 06/30/2015 3:30 PM CDT 06/30/2015 5:30 PM CDT Narrative Resulting Agency Comment [facility] [id number] [facility] [phone] Minoo Craft MD LAB - CHEMISTRY ORD ERABLES Performing Organization Address [facility]/ZIP Co de Phone Number [facility] INSURANCE BILL * LIPID PROFILE (09/16/2014 8:13 AM REHABILITATION COUNSELOR) Only the most recent of2 resultswithin the [...] test is not needed 09/16/2014 8:13 AM REHABILITATION COUNSELOR 09/16/2014 2:43 PM REHABILITATION COUNSELOR Narrative [facility] ACCOUNT BILL - 09/17/2014 4:07 AM REHABILITATION COUNSELOR A courtesy copy of this report has been sent to [phone]. Resulting Agency [facility] [address] [facility] [phone] Minoo Craft MD LAB - CHEMISTRY ORD ERABLES [facility] ACCOUNT BILL * (ABNORMAL) TSH+FREE T4 (PO REF LAB) (09/21/2013 8:15 AM REHABILITATION COUNSELOR) TSH 5.560(H) 0.450 - 4.500 uIU/mL [facility] INSURANCE BILL T4 Free 1.30 0.82 - 1.77 ng/dL [facility] INSURANCE BILL 09/21/2013 8:15 AM REHABILITATION COUNSELOR 09/21/2013 12:58 PM REHABILITATION COUNSELOR Narrative [facility] INSURANCE BILL - 09/22/2013 8:10 AM REHABILITATION COUNSELOR A courtesy copy of this report has been sent to [phone]. Resulting Agency Comment [facility] [address] [phone] Dada Reynoso MD LAB - CHEMISTRY ORDERABLES [facility] INSURANCE BILL * CARDIAC RHYTHM STRIP ORDER (10/15/2012 1:06 PM REHABILITATION COUNSELOR) Narrative 10/15/2012 1:06 PM REHABILITATION COUNSELOR Procedure Note Document, Scanned - 10/15/2012 1:06 PM CST Scanned Document CARDIAC SERVICES ORD ERABLES * GROSS + MICRO EXAM (STL) (10/14/2012 2:30 PM REHABILITATION COUNSELOR) Case Report Surgical Pathology Report Case: [id number] Authorizing Provider: Isak Verduzco MD Ordering Provider: Isak Verduzco MD Ordering Location: [facility] Collected: 10/14/2012 2:30 PM Pathologist: Mandy Kirby MD Received: 10/15/2012 7:44 AM Signed Out: 10/16/2012 11:42 AM (Final) Specimen: Neck Mass, posterior 10/16/2012 11:42 AM REHABILITATION COUNSELOR [facility] Final Diagnosis Soft tissue, posterior neck, excision: - Consistent with lipoma. KL/mal 10/16/2012 11:42 AM REHABILITATION COUNSELOR [facility] Clinical History Mass posterior neck 10/16/2012 11:42 AM [facility] Gross Description Received in formalin in a container labeled, Ursula Mckay, mass, neck, posterior . The container holds a 5.2 x 5 x 4.1 cm thinly encapsulate yellow-barros lobular soft tissue mass. Section shows a yellow-barros fatty cut surface. There are no areas of hemorrhage or necrosis grossly identified. Manager Programming sections are submitted in cassettes A1 and A2. DYT/na 10/16/2012 11:42 AM [facility] Microscopic Description Histologic sections show mature adipose tissue consistent with lipoma. There is no evidence of malignancy. KL/mal 10/16/2012 11:42 AM [facility] Synoptic Report 10/16/2012 11:42 AM [facility] Miscellaneous samples (specimen) MASS OF NECK / Unknown 10/14/2012 2:30 PM REHABILITATION COUNSELOR 10/15/2012 7:44 AM REHABILITATION COUNSELOR Isak Verduzco MD LAB - PATHOLOGY/CY TOLOGY ORDERABLES [facility] [address] [place] [address] * MRI SOFT TISSUE NECK W WO CONT (09/24/2012 2:20 PM REHABILITATION COUNSELOR) Anatomical Region Laterality Modality Head Magnetic Resonan ce Angiography 09/24/2012 2:29 PM REHABILITATION COUNSELOR Impressions 09/24/2012 2:29 PM REHABILITATION COUNSELOR Increase size of left posterior neck lipoma. Narrative 09/24/2012 2:29 PM REHABILITATION COUNSELOR Exam: MRI soft tissue neck without without [...] - POINT OF CARE (10/16/2011 2:34 PM REHABILITATION COUNSELOR) [facility] ACT POCT 125 - 187 Seconds [facility] POCT TESTING Comment:this test ordered in error see POC blood cratinine test QC Verified Yes [facility] POC T TESTING Blood specimen (specimen) BLOOD SPECIMEN / Unknown 10/16/2011 2:34 PM REHABILITATION COUNSELOR Dada Reynoso MD LAB - POINT OF CARE ORDERABLES Performing Organization Address [facility] Co de Phone Number [facility] [address] * LAB HISTORICAL RESULTS-ONBASE (07/26/2011) Only the most recent of3 resultswithin the time period is included. 07/26/2011 Historical Provider LAB - CHEMISTRY O RDERABLES Performing Organization Address City/State/[facility] Co de Phone Number [facility] * CT IAC NON CONTRAST (06/09/2009 11:30 [...] ALVES M.D. Released Date Time- 06/09/09 1452 Marine Surveyor- ZAIDA DADA CHIU- DADA REYNOSO REF- DADA [...] ALVES M.D. Released Date Time- 06/09/09 1452 Marine Surveyor- AMD DADA CHIU- DADA REYNOSO REF- DADA REYNOSO [facility] JULIANA TRAN [place]OH[place] R Dada Reynoso MD CT ORDERABLES * EVOKED POTENTIAL RESPONSE (12/30/2008 8:44 AM CDT) Narrative Procedure Note Clemente Salmeron MD - 12/30/2008 [facility] PATIENT NAME: URSULA ROGERS MR#: [id number] ROOM#: OP SEX: M REFERRING PHYSICIAN: MANDIE [...] Clemente Salmeron MD NEUROLOGY ORDERABLES Care Teams Embalmer Apprentice Relationship Specialty Start Date End Date Juliana Tran MD [address] [place] [address] PCP - General 12/28/08 Arlene Smith, QUALITY IMPROVEMENT COORDINATOR (RN)-PRODUCTION BORING MACHINE OPERATOR [address] [place] [phone] Nurse Practitioner 11/16/13
--- OUTSIDE RECORDS SUMMARY | 2024-11-11 09:13 | XMS_ITS | Clinical Summary ---
Author Organization [facility] Address [address] [place] [address] Care Team Providers Care Retail Wireless Sales Representative Name Role Phone Jayant Flores MD Primary Care Provider [phone] Allergies No known active allergies Medications cabergoline [...] on file Legal Sex Male 6:00 PM [employer] BPM ARCHITECT Gender Identity Not on file Sexual Orientation Not on file Obstetrics History Last Filed Vital Signs Vital Sign Reading Time Taken Comments Blood Pressure 122/93 08/30/2021 1:22 PM IBM BPM ARCHITECT Pulse 70 08/30/2021 1:22 PM IBM BPM ARCHITECT Temperature 36.7 C (98.1 F) 08/30/2021 9:16 AM IBM BPM ARCHITECT Respiratory Rate 12 08/30/2021 1:22 PM IBM BPM ARCHITECT Oxygen Saturation 98% 08/30/2021 1:22 PM IBM BPM ARCHITECT Inhaled Oxygen Concentration - - Weight 106.6 [...] patient's age to complete this topic Insurance [employer] ACCESS Care Teams Retail Wireless Sales Representative Relationship Specialty Start Date End Date Jayant Flores MD [address] [facility] [address] [facility] 209 [facility] [place] [phone] PCP - General Internal Medicine 08/30/21
--- OUTSIDE RECORDS SUMMARY | 2024-11-11 09:13 | XMS_ITS | Referral Summary ---
Author Organization [facility] Address [address] [place] [address] Care Team Providers Care Hydro Operator Name Role Phone Jayant Flores MD Primary Care Provider [phone] Arlene Smith APRN-AMBULANCE OFFICER Unavailable Source Comments [facility],non-owned Affiliates and Associated Physician Practices is amultiple site organization consisting of ambulatory clinics and hospital sitesin [place], [place], [place] and [place]. This disclosure is being madepursuant to the Care Everywhere program and may not contain all information available regarding this patient. Last updated 18.[facility] Allergies Active Allergy Reactions Criticality Noted Date [...] Comments Blood Pressure 124/70 09/26/2023 9:13 AM ADULT REMEDIAL EDUCATION INSTRUCTOR Pulse 74 11/21/2014 6:29 PM CDT Temperature 36.7 C (98 F) 11/21/2014 6:29 PM CDT Respiratory Rate 18 11/21/2014 6:29 PM CDT Oxygen Saturation 99% 11/21/2014 6:29 PM CDT Inhaled Oxygen Concentration - - Weight 114.8 kg (253 lb) 09/26/2023 9:13 AM ADULT REMEDIAL EDUCATION INSTRUCTOR Height 182.9 cm (6') 09/26/2023 9:13 AM ADULT REMEDIAL EDUCATION INSTRUCTOR Body Mass Index 34.31 09/26/2023 9:13 AM ADULT REMEDIAL EDUCATION INSTRUCTOR Plan of Treatment Not on file Procedures Procedure Name Priority Date/Time Associated Diagnosis Comments COMPREHENSIVE METABOLIC PANEL Routine 10/03/2023 8:42 AM ADULT REMEDIAL EDUCATION INSTRUCTOR Hyperprolactinemia (HCC) Pituitary macroadenoma (HCC) Acquired hypothyroidism Male hypogonadism from Last 3 Months or Most Recently Relevant to Health Maintenance Results * (ABNORMAL) COMPREHENSIVE METABOLIC PANEL (10/03/2023 8:42 AM ADULT REMEDIAL EDUCATION INSTRUCTOR) Glucose 105(H) 70 - 99 mg/dL [facility] [...] BLOOD SPECIMEN / Unknown 10/03/2023 8:42 AM ADULT REMEDIAL EDUCATION INSTRUCTOR 10/03/2023 Narrative Resulting Agency Comment Lab Testing performed at: [facility] [address] [id number] Minoo Craft MD LAB - CHEMISTRY ORD ERABLES [facility] ACCOUNT BILL [address] [place] [address] from Last 3 Months or Most Recently Relevant to Health Maintenance Care Teams Hydro Operator Relationship Specialty Start Date End Date Jayant Flores MD [address] [place] [address] PCP - General 12/28/08 Arlene Smith, CLASSIFYING MACHINE OPERATOR-AMBULANCE OFFICER [facility] [facility], [facility] [address] [place] [address] Nurse Practitioner 11/16/13
--- OUTSIDE RECORDS SUMMARY | 2024-11-11 09:13 | XMS_ITS | Clinical Summary ---
Author Organization [facility] Address [facility] [place] [address] Care Team Providers Care System Configuration Specialist Name Role Phone Jayant Flores MD Primary Care Provider [phone] Social History Tobacco Use Types Packs/Day Years [...] - 19+ 3-dose series) 1990 COVID-19 Vaccine ( - 2023-2 5 season) 2024 12/12/2020, 11/20/2020 [...] Insurance BLUE [employer]UE [employer] Care Teams System Configuration Specialist Relationship Specialty Start Date End Date Jayant Flores MD [address] - [facility] [address] [place] [address] PCP - General INTERNAL MEDICINE 08/21/23
--- OUTSIDE RECORDS SUMMARY | 2024-11-11 09:13 | XMS_ITS | Referral Summary ---
Author Organization [facility] Address [address] [place] [address] Care Team Providers Care Grades 1 Thru 6 Home Teacher Name Role Phone Jayant Flores MD Primary Care Provider [phone] Allergies No known active allergies Medications cabergoline [...] on file Legal Sex Male 6:00 PM PROFESSOR OF PSYCHIATRY Gender Identity Not on file Sexual Orientation Not on file Last Filed Vital Signs Vital Sign Reading Time Taken Comments Blood Pressure 122/93 08/30/2021 1:22 PM PROFESSOR OF PSYCHIATRY Pulse 70 08/30/2021 1:22 PM PROFESSOR OF PSYCHIATRY Temperature 36.7 C (98.1 F) 08/30/2021 9:16 AM PROFESSOR OF PSYCHIATRY Respiratory Rate 12 08/30/2021 1:22 PM PROFESSOR OF PSYCHIATRY Oxygen Saturation 98% 08/30/2021 1:22 PM PROFESSOR OF PSYCHIATRY Inhaled Oxygen Concentration - - Weight 106.6 kg (235 lb) 06/05/2024 8:51 AM CDT Height 182.9 cm (6') 06/05/2024 8:51 AM CDT Body Mass Index 31.87 06/05/2024 8:51 AM CDT Plan of Treatment Not on file Insurance [employer] ACCESS Care Teams Grades 1 Thru 6 Home Teacher Relationship Specialty Start Date End Date Jayant Flores MD [address] [facility] [address] MEDICINE [place], [place] [phone] PCP - General Internal Medicine 08/30/21
== END 2024-11-11 08:50 | disposition home or self-care (01) ==
PROVIDERS: PCP Internal Medicine; Visit Provider Internal Medicine
DX: R10.84 Generalized abdominal pain (principal); R14.0 Abdominal distension (gaseous)
CPT/HCPCS: 78227; A9537; J2805

== ENCOUNTER 2025-01-07 14:22 | Outpatient (CLI) | payer BC, SELFPAY ==
--- NOTE | 2025-01-07 14:49 | ECHO_ITS ---
Patient Info Name: Rick Caceres Age: 54 years : 1970 Gender: Male Ht: 72 in Wt: 240 lbs BSA: 2.38 m2 HR: 55 bpm BP: 126 / 81 mmHg Technical Quality: Good Exam Date: 01/07/2025 3:04 PM Exam Location: Echo Lab Patient Status: Outpatient Admit Date: 01/07/2025 Staff Ordering Physician: Jayant Flores MD Transit Mix Operator: Darleen Hawthorne RDCS Attending Provider: Jayant Flores MD Referring Physician: Sandra MUKHERJEE; Exam Type: CA echo doppler color flow Study Info Indications R94.31 - Abnormal electrocardiogram ECG EKG Complete two-dimensional, color flow and Doppler transthoracic echocardiogram is performed. Summary 1. Complete two-dimensional, color flow and Doppler transthoracic echocardiogram is performed. 2. Left ventricular chamber dimension is normal. 3. Left ventricular systolic function is normal, estimated at 60-65%. 4. There is mild concentric increased left ventricular wall thickness. 5. The left ventricular diastolic function is normal. 6. E/e' 4 is not elevated. 7. Left atrial chamber dimension is mildly enlarged. 8. There is trace mitral valve regurgitation. 9. There is trace tricuspid valve regurgitation. 10. No pulmonary hypertension, estimated pulmonary arterial systolic pressure is 22 mmHg. Left Ventricle E/e' 4 is not elevated. Left ventricular chamber dimension is normal. Left ventricular systolic function is normal, estimated at 60-65%. There is mild concentric increased left ventricular wall thickness. The left ventricular diastolic function is normal. Right Ventricle Right ventricular systolic function is normal and with normal TAPSE 2.1 cm. Right ventricular chamber dimension is normal. Left Atria Left atrial chamber dimension is mildly enlarged. Right Atria Right atrial chamber dimension is normal. Aortic Valve The aortic valve is trileaflet. There is no aortic valve stenosis. There is no aortic valve regurgitation. Pulmonic Valve There is no pulmonic regurgitation. Mitral Valve There is no mitral valve stenosis. There is trace mitral valve regurgitation. Tricuspid Valve There is trace tricuspid valve regurgitation. No pulmonary hypertension, estimated pulmonary arterial systolic pressure is 22 mmHg. Pericardium/Pleural There is no pericardial effusion. Inferior Vena Cava Normal inferior vena cava with >50% collapse upon inspiration consistent with normal right atrial pressure, 5 mmHg. Aorta The aortic root size at the sinus of Valsalva is normal. Left Ventricular Outflow Tract Name Value Normal LVOT 2D LVOT Diameter 2.3 cm LVOT Doppler LVOT Peak Gradient 6 mmHg LVOT Mean Gradient 3 mmHg LVOT VTI 25 cm LVOT VTI/AV VTI Ratio 0.7 LVOT Stroke Volume 107 ml LVOT CO 20.7 l/min LVOT CI 8.7 l/min/m2 Pulmonic Valve Name Value Normal PV Doppler PV Peak Gradient 8 mmHg Mitral Valve Name Value Normal MV Doppler MV Decel [place] 180 cm/s2 MV PHT 99 ms MV Area (PHT) 2.2 cm2 4.0-5.0 MV Diastolic Function MV E Peak Velocity 61 cm/s MV A Peak Velocity 58 cm/s MV E/A 1.1 MV Decel Time 342 ms MV Annular TDI MV E/e' (Septal) 5.8 <=8.0 MV E/e' (Lateral) 4.0 <=8.0 MV E/e' (Average) 4.9 Tricuspid Valve Name Value Normal TV Regurgitation Doppler TR Peak Velocity 208 cm/s TR Peak Gradient 17 mmHg Estimated PAP/RSVP RA Pressure 5 mmHg <=5 PA Systolic Pressure 22 mmHg <36 RV Systolic Pressure 22 mmHg <36 Aorta Name Value Normal Ascending Aorta Ao Root Diameter (MM) 3.6 cm Ao Root Diam Index (MM) 1.5 cm/m2 Aortic Valve Name Value Normal AV Doppler AV Peak Velocity 169 cm/s AV Peak Gradient 11 mmHg AV Mean Gradient 6 mmHg AV VTI 34 cm AV Area (Cont Eq VTI) 3.2 cm2 >=3.0 AV Area (Cont Eq Jerardo) 3.0 cm2 AV Regurgitation 2D LVOT Area 4.3 cm2 Ventricles Name Value Normal LV Dimensions 2D/MM IVS Diastolic Thickness (2D) 1.2 cm 0.6-1.0 LVID Diastole (2D) 5.0 cm 4.2-5.8 LVIW Diastolic Thickness (2D) 1.2 cm 0.6-1.0 LVID Systole (2D) 3.2 cm 2.5-4.0 LVOT Diameter 2.3 cm LV Mass (2D Cubed) 234.82 g 88.00-224.00 LV Mass Index (2D Cubed) 99 g/m2 49-115 Relative Wall Thickness (2D) 0.48 LV Fractional Shortening/Ejection Fraction 2D/MM LV Fractional Shortening (2D) 37 % 25-43 LV EF (2D Teicholz) 66 % 52-72 LV Diastolic Volume (4C MOD) 177 ml LV EF (4C MOD) 62 % LV Diastolic Volume (2C MOD) 150 ml LV EF (2C MOD) 59 % LV Diastolic Volume (BP MOD) 171 ml 62-150 LV Diastolic Volume Index (BP MOD) 72 ml/m2 34-74 LV Systolic Volume (BP MOD) 65 ml 21-61 LV Systolic Volume Index (BP MOD) 27 ml/m2 11-31 LV EF (BP MOD) 62 % 52-72 LV Diastolic Length (4C) 9.9 cm LV Systolic Length (4C) 7.4 cm LV Stroke Volume (4C MOD) 111 ml RV Dimensions 2D/MM RVID Diastole (2D) 5.0 cm 2.5-3.5 Atria Name Value Normal LA Dimensions LA Dimension (MM) 0.0 cm 3.0-4.1 LA Volume (4C A-L) 73 ml LA Volume (BP A-L) 82 ml RA Dimensions RA Area (4C) 22.3 cm2 <=18.0 Report Signatures
--- OUTSIDE RECORDS SUMMARY | 2025-01-07 15:07 | XMS_ITS | Clinical Summary ---
Author Organization [facility] Address [facility] [place] [address] Care Team Providers Care Holistic Pulser Name Role Phone Jayant Flores MD Primary Care Provider [phone] Social History Tobacco Use Types Packs/Day Years [...] of 3 - 19+ 3-dose series) 1990 Pneumococcal Vaccine: 50+ Years (1 of 1 - PCV) 2021 COVID-19 Vaccine (3 - 2023-2 5 season) 2024 12/12/2020, 11/20/2020 Zoster Vaccines Completed 10/17/2022, 07/25/2022 Meningococcal B Vaccine Aged Out No l onger eligible based on patient's age to complete this topic Meningococcal Vaccine Aged Out No roxanna maddi eligible based on patient's age to complete this topic RSV Immunizations Under 20 Months Aged Out No longer eligible b ased on patient's age to complete this topic Insurance [facility] Care Teams Holistic Pulser Relationship Specialty Start Date End Date Jayant Flores MD [address] - [facility] [address] [place] [address] PCP - General INTERNAL MEDICINE 08/21/23
--- OUTSIDE RECORDS SUMMARY | 2025-01-07 15:07 | XMS_ITS | Referral Summary ---
Author Organization [facility] Address [address] [place] [address] Care Team Providers Care Lean Facilitator Name Role Phone Jayant Flores MD Primary Care Provider [phone] Allergies No known active allergies Medications cabergoline [...] on file Legal Sex Male 6:00 PM WEDDING COORDINATOR Gender Identity Not on file Sexual Orientation Not on file Last Filed Vital Signs Vital Sign Reading Time Taken Comments Blood Pressure 122/93 08/30/2021 1:22 PM WEDDING COORDINATOR Pulse 70 08/30/2021 1:22 PM WEDDING COORDINATOR Temperature 36.7 C (98.1 F) 08/30/2021 9:16 AM WEDDING COORDINATOR Respiratory Rate 12 08/30/2021 1:22 PM WEDDING COORDINATOR Oxygen Saturation 98% 08/30/2021 1:22 PM WEDDING COORDINATOR Inhaled Oxygen Concentration - - Weight 106.6 kg (235 lb) 06/05/2024 8:51 AM CDT Height 182.9 cm (6') 06/05/2024 8:51 AM CDT Body Mass Index 31.87 06/05/2024 8:51 AM CDT Plan of Treatment Not on file Insurance [employer] ACC[employer] Care Teams Lean Facilitator Relationship Specialty Start Date End Date Jayant Flores MD [address] [facility] [address] INTERNAL MEDICINE [place], [place] [phone] PCP - General Internal Medicine 08/30/21
--- OUTSIDE RECORDS SUMMARY | 2025-01-07 15:07 | XMS_ITS | Clinical Summary ---
Author Organization [facility] Address [address] [place] [address] Care Team Providers Care Filenet P8 Developer Name Role Phone Jayant Flores MD Primary Care Provider [phone] Arlene Smith APRN-RETANNER Unavailable Source Comments [facility],non-owned Affiliates and Associated Physician Practices is amultiple site organization consisting of ambulatory clinics and hospital sitesin [place], [place], [place] and [place]. This disclosure is being madepursuant to the Care Everywhere program and may not contain all information available regarding this patient. Last updated 18.[facility] Allergies Active Allergy Reactions Criticality Noted Date Comments Lisinopril Cough Medium 11/13/2011 Medications * Be aware that medications may not be up to date on this document. Alwaysverify current medications with the patient. diltiazem coated beads 24hr (CARDIZEM CD) 240 MG capsule Take 1 (one) capsule by mouth once daily Active omeprazole (PRILOSEC) 20 MG capsule Take 1 (one) capsule by mouth daily before breakfast Active losartan (COZAAR) 100 MG tablet Take 1 (one) tablet by mouth once daily Active cabergoline (DOSTINEX) 0.5 MG tablet 1 tab twice a week 30 Tab 1 5 Active levothyroxine (SYNTHROID) 175 MCG tablet Take 1 (one) tablet by mouth daily before breakfast 7 Active rosuvastatin (CRESTOR) 10 MG tablet Take 1 (one) tablet by mouth at bedtime 7 Active testosterone (ANDROGEL) 20.25 MG/ACT (1.62%) gel Use 3 (three) Pump as instructed once daily 1 Active cabergoline (Dostinex) 0.5 MG tablet TAKE 1 TABLET EVERY 3 DAYS FOR DISORDER WITH ELEVATED LEVELS OF PROLACTIN IN THE BLOOD 24 tablet 4 3 Active Active Problems Problem Noted Date Diagnosed Date 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 Initial dimensions: 3.6 x 2.9 x 2.7 cm, with left displacement of stalk. 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 [...] at Not on file Legal Sex Male 7:26 AM MAKE UP ARRANGER Gender Identity Not on file Sexual Orientation Not on file Occupation Industry Job Start Date Job End Date garcia Not on file Not on file Not on file Last Filed Vital Signs Vital Sign Reading Time Taken Comments Blood Pressure 124/70 09/26/2023 9:13 AM MAKE UP ARRANGER Pulse 74 11/21/2014 6:29 PM CDT Temperature 36.7 C (98 F) 11/21/2014 6:29 PM CDT Respiratory Rate 18 11/21/2014 6:29 PM CDT Oxygen Saturation 99% 11/21/2014 6:29 PM CDT Inhaled Oxygen Concentration - - Weight 114.8 kg (253 lb) 09/26/2023 9:13 AM MAKE UP ARRANGER Height 182.9 cm (6') 09/26/2023 9:13 AM MAKE UP ARRANGER Body Mass Index 34.31 09/26/2023 9:13 AM MAKE UP ARRANGER Plan of Treatment Health Maintenance Due Date [...] VACCINE (3 - season) 2024 12/12/2020, 11/20/2020 DEPRESSION SCREENING 09/09/2024 INFLUENZA VACCINE (Season Ended) 2025 06/28/2020 SCREENING FOR DIABETES 10/03/2026 , 04/01/2018, 04/01/2017, Additional history exists HIB VACCINE Aged Out No longer eligi ble based on patient's age to complete this topic HPV VACCINE Aged Out No longer eligi ble based on patient's age to complete this topic MENINGOCOCCAL (Group B) VACCINE SHARED DECISION-MAKING Aged Out No longer eligible based on patient's age to complete this topic MENINGOCOCCAL GROUPS A/C/Y/W VACCINE Aged Out No longer eligible based on patient's age to complete this topic Procedures Procedure Name Priority Date/Time Associated Diagnosis Comments COMPREHENSIVE METABOLIC PANEL Routine 10/03/2023 8:42 AM MAKE UP ARRANGER Hyperprolactinemia Pituitary macroadenoma Acquired hypothyroidism Male hypogonadism from Last 3 Months or Most Recently Relevant to Health Maintenance Results * (ABNORMAL) COMPREHENSIVE METABOLIC PANEL (10/03/2023 8:42 AM MAKE UP ARRANGER) Glucose 105(H) 70 - 99 mg/dL [facility] [...] BLOOD SPECIMEN / Unknown 10/03/2023 8:42 AM MAKE UP ARRANGER 10/03/2023 Narrative Resulting Agency Comment Lab Testing performed at: [facility] [address] [facility] [id number] [place] Minoo Craft MD LAB - CHEMISTRY ORDERABLES Final Result [facility] ACCOUNT BILL [address] [place] [address] from Last 3 Months or Most Recently Relevant to Health Maintenance Insurance [facility] ANTH BC/[facility] SELF PAY NO INSURANCE Member Subscriber Plan / Payer (Ef fective for All Dates) Name:Ursula Rogers Niko Member ID:Not on file Relation to Subscriber:Not on file Name:URSULA ROGERS Subscriber ID:Not on file Address: [address] [place] [id number] Payer ID:Not on file Group ID:Not on file Type:Self Pay Address: [place], [place] BC/BLUE [facility] Address: [facility] [address] [place] [address] SELF PAY NO INSURANCE Member Subscriber Plan / Payer (Ef fective for All Dates) Name:Handenny Ursula Niko Member ID:Not on file Relation to Subscriber:Not on file Name:URSULA ROGERS Subscriber ID:Not on file Address: [address] [place] [id number] Payer ID:Not on file Group ID:Not on file Type:Self Pay Address: [place], [place] Care Teams Filenet P8 Developer Relationship Specialty Start Date End Date Jayant Flores MD [address] [place] [address] PCP - General 12/28/08 Arlene Smith, VACUUM CLEANER ASSEMBLER-RETANNER [address] [place] [address] [address] [place] [address] Nurse Practitioner 11/16/13
--- OUTSIDE RECORDS SUMMARY | 2025-01-07 15:07 | XMS_ITS | Clinical Summary ---
Author Organization [facility] Address [address] [place] [address] Care Team Providers Care Rotary Drum Dyer Name Role Phone Jayant Flores MD Primary Care Provider [phone] Allergies No known active allergies Medications cabergoline [...] on file Legal Sex Male 6:00 PM SANITATION LEAD Gender Identity Not on file Sexual Orientation Not on file Obstetrics History Last Filed Vital Signs Vital Sign Reading Time Taken Comments Blood Pressure 122/93 08/30/2021 1:22 PM SANITATION LEAD Pulse 70 08/30/2021 1:22 PM SANITATION LEAD Temperature 36.7 C (98.1 F) 08/30/2021 9:16 AM SANITATION LEAD Respiratory Rate 12 08/30/2021 1:22 PM SANITATION LEAD Oxygen Saturation 98% 08/30/2021 1:22 PM SANITATION LEAD Inhaled Oxygen Concentration - - Weight 106.6 [...] patient's age to complete this topic Insurance [employer] ACCESS Care Teams Rotary Drum Dyer Relationship Specialty Start Date End Date Jayant Flores MD [address] [facility] [address] [facility] [address] INTERNAL MEDICINE [place] [phone] PCP - General Internal Medicine 08/30/21
== END 2025-01-07 14:23 | disposition home or self-care (01) ==
PROVIDERS: PCP Internal Medicine; Visit Provider Internal Medicine
DX: R94.31 Abnormal electrocardiogram [ECG] [EKG] (principal)
CPT/HCPCS: 93306

== ENCOUNTER 2025-04-28 04:27 | Day surgery (SDC) | payer BC, SELFPAY ==
[2025-04-13 12:04] VITALS: BMI 32.5
--- OUTSIDE RECORDS SUMMARY | 2025-04-28 04:30 | XMS_ITS | Clinical Summary ---
Author Organization [facility] Address [address] [place] [address] Care Team Providers Care Workforce Planner Name Role Phone Jayant Flores MD Primary Care Provider [phone] Allergies No known active allergies Medications cabergoline [...] on file Legal Sex Male 6:00 PM OCCUPATIONAL THERAPY SPECIALIST Gender Identity Not on file Sexual Orientation Not on file Obstetrics History Last Filed Vital Signs Vital Sign Reading Time Taken Comments Blood Pressure 122/93 08/30/2021 1:22 PM OCCUPATIONAL THERAPY SPECIALIST Pulse 70 08/30/2021 1:22 PM OCCUPATIONAL THERAPY SPECIALIST Temperature 36.7 C (98.1 F) 08/30/2021 9:16 AM OCCUPATIONAL THERAPY SPECIALIST Respiratory Rate 12 08/30/2021 1:22 PM OCCUPATIONAL THERAPY SPECIALIST Oxygen Saturation 98% 08/30/2021 1:22 PM OCCUPATIONAL THERAPY SPECIALIST Inhaled Oxygen Concentration - - Weight 106.6 [...] season) 2024 12/12/2020, 11/20/2020 Influenza Vaccine (#1) 2025 06/28/2020 Zoster Vaccine Completed 10/17/2022, 07/25/2022 Pneumococcal vaccine <65 Aged Out No longer eligible based on patient's age to complete this topic Insurance [employer] ACCESS Care Teams Workforce Planner Relationship Specialty Start Date End Date Jayant Flores MD [address] [facility] [address] [facility] [address] INTERNAL MEDICINE [place] [phone] PCP - General Internal Medicine 08/30/21
--- OUTSIDE RECORDS SUMMARY | 2025-04-28 04:30 | XMS_ITS | Clinical Summary ---
Author Organization [facility] Address [address] [place] [address] Care Team Providers Care Adjustment Clerk Name Role Phone Jayant Flores MD Primary Care Provider [phone] Arlene Smith APRN-MASTER FISHER Unavailable Source Comments [facility],non-owned Affiliates and Associated Physician Practices is amultiple site organization consisting of ambulatory clinics and hospital sitesin [place], [place], [place] and [place]. This disclosure is being madepursuant to the Care Everywhere program and may not contain all information available regarding this patient. Last updated 18.[facility] Allergies Active Allergy Reactions Criticality Noted Date [...] on file Legal Sex Male 7:26 AM LAMINA SEARCHER Gender Identity Not on file Sexual Orientation Not on file Occupation Industry Job Start Date Job End Date garcia Not on file Not on file Not on file Last Filed Vital Signs Vital Sign Reading Time Taken Comments Blood Pressure 124/70 09/26/2023 9:13 AM LAMINA SEARCHER Pulse 74 11/21/2014 6:29 PM CDT Temperature 36.7 C (98 F) 11/21/2014 6:29 PM CDT Respiratory Rate 18 11/21/2014 6:29 PM CDT Oxygen Saturation 99% 11/21/2014 6:29 PM CDT Inhaled Oxygen Concentration - - Weight 114.8 kg (253 lb) 09/26/2023 9:13 AM LAMINA SEARCHER Height 182.9 cm (6') 09/26/2023 9:13 AM LAMINA SEARCHER Body Mass Index 34.31 09/26/2023 9:13 AM LAMINA SEARCHER Plan of Treatment Health Maintenance Due Date [...] 12/12/2020, 11/20/2020 DEPRESSION SCREENING 09/09/2024 INFLUENZA VACCINE (#1) 2025 06/28/2020 SCREENING FOR DIABETES 10/03/2026 , 08/30/2021, 08/30/2021, Additional history exists HIB VACCINE Aged Out [...] COMPREHENSIVE METABOLIC PANEL Routine 10/03/2023 8:42 AM LAMINA SEARCHER Hyperprolactinemia Pituitary macroadenoma Acquired hypothyroidism Male hypogonadism from Last 3 Months or Most Recently Relevant to Health Maintenance Results * (ABNORMAL) COMPREHENSIVE METABOLIC PANEL (10/03/2023 8:42 AM LAMINA SEARCHER) Glucose 105(H) 70 - 99 mg/dL [facility] [...] BLOOD SPECIMEN / Unknown 10/03/2023 8:42 AM LAMINA SEARCHER 10/03/2023 Narrative Resulting Agency Comment [facility]: [facility] [address] [id number] us Minoo Craft MD LAB - CHEMISTRY ORDERABLES Final Result [facility] ACCOUNT BILL [address] [place] [address] from Last 3 Months or Most Recently Relevant to Health Maintenance Insurance REPLACED BY [facility] BC/[facility] SELF PAY NO INSURANCE Member Subscriber Plan / Payer (Ef fective for All Dates) Name:Ursula Rogers Niko Member ID:Not on file Relation to Subscriber:Not on file Name:URSULA ROGERS Subscriber ID:Not on file Address: [address] [place] [id number] Payer ID:Not on file Group ID:Not on file Type:Self Pay Address: [place], [place] BC/[facility] SELF PAY NO INSURANCE Member Subscriber Plan / Payer (Ef fective for All Dates) Name:HantheresaUrsula marroquin Niko Member ID:Not on file Relation to Subscriber:Not on file Name:URSULA ROGERS Subscriber ID:Not on file Address: [address] [place] [phone] Payer ID:Not on file Group ID:Not on file Type:Self Pay Address: [place], [place] Care Teams Adjustment Clerk Relationship Specialty Start Date End Date Jayant Flores MD [address] [place] [address] PCP - General 12/28/08 Arlene Smith APRN-MASTER FISHER [address] [place] [address], [facility] [address] [place] [address] Nurse Practitioner 11/16/13
--- OUTSIDE RECORDS SUMMARY | 2025-04-28 04:30 | XMS_ITS | Clinical Summary ---
Author Organization [facility] Address [facility] [place] [address] Care Team Providers Care Stone And Concrete Washer Name Role Phone Jayant Flores MD Primary Care Provider [phone] Social History Tobacco Use Types Packs/Day Years [...] patient's age to complete this topic Insurance [facility] Care Teams Stone And Concrete Washer Relationship Specialty Start Date End Date Jayant Flores MD [address] - [facility] [address] [place] [address] PCP - General INTERNAL MEDICINE 08/21/23
[2025-04-28 08:17] VITALS: BP 133/98; PULSE 71; RESP 16; TEMP 36.3; O2SAT 98; BMI 32.0
[2025-04-28] MEDS: LACTATED RINGERS 1,000 ML 150 ML IV CONT (08:35)
--- NOTE | 2025-04-28 08:35 | P.PNAN_ITS ---
Anes - Initial Pre Proc Eval Procedure: Operation Date: 04/28/25 09:30 Proposed Procedures p Esophagogastroduodenoscopy & Colonoscopy - Mark Smith MD Date/Time: 04/28/25 08:35 Surgeon: Mark Smith MD Pre Op Diagnosis: abdominal pain.diarrhea Patient Data Age: 54 Gender: M Height: 1.83 m Weight: 107.2 kg Last Vital Signs Temp 36.3 C L 04/28/25 08:17 Pulse 71 04/28/25 08:17 Resp 16 04/28/25 08:17 BP 133/98 H 04/28/25 08:17 Pulse Ox 98 04/28/25 08:17 O2 Del Method Room Air 04/28/25 08:17 Allergies Allergy/AdvReac Type Severity Reaction Status Date / Time lisinopril AdvReac Mild Cough Verified 04/28/25 08:23 Home Medications ?Medication ?Instructions ?Recorded ?Confirmed ?Type needle (disp) 18 G 18 gauge x 1 #100 ea 04/08/2404/28 Rx 1/2 (CareTouch Hypodermic Needle) syringe with needle, safety 3 mL #100 ea 06/22/2404/10 Rx 25 gauge x 5/8 (Easy Touch FlipLock Syringe) cabergoline 0.5 mg tablet 0.5 mg PO 2XW 10/21/2404/28 History omeprazole 40 mg capsule,delayed 40 mg PO DAILY #90 ca ps 10/21/24 04/28/25 Rx release rosuvastatin 10 mg tablet 10 mg PO .qod #45 tabs 10/2104/28/25 Rx losartan 100 mg tablet See Rx Instructions .Route 0 11/11/24 04/28/25 Rx .COMPLEX #90 tabs dicyclomine 10 mg capsule 10 mg PO TID PRN abdominal p ain 01/28/25 04/13/25 Rx #90 caps testosterone cypionate 200 mg/mL 200 mg IM .every 2 we eks #1 mL 03/23/25 04/13/25 Rx intramuscular oil levothyroxine 175 mcg tablet See Rx Instructions .Rout e 03/25/25 04/28/25 Rx (Synthroid) .COMPLEX #90 tabs diltiazem HCl 240 mg See Rx Instructions .Route 0 04/06/25 04/28/25 Rx capsule,extended release 24 hr .COMPLEX #180 caps Patient hx anesthesia problems: none Family hx anesthesia problems: none Results Review: All pre-operative results and documents have been reviewed as part of the pre- operative evaluation. [facility] Past Medical History Medical History Change in bowel habits Hemorrhoids Incomplete right bundle branch block Skin lesion Diarrhea Abdominal pain Encounter for routine adult health examination with abnormal findings Vitamin D deficiency Prostate cancer screening Pre-diabetes BMI 32.0-32.9,adult Skin lesion of left leg Chronic pain of right knee Chest pain Testosterone deficiency AV block, 1st degree Hypertension Abnormal finding of blood chemistry Low back pain Encounter for routine adult health examination without abnormal findings Colon cancer screening BMI 33.0-33.9,adult Encounter for preventive health examination On middle or intermediate school principal drug therapy GERD (gastroesophageal reflux disease) Hypothyroidism (acquired) Hyperlipidemia Benign essential hypertension History of pituitary adenoma Family History Family History Sibling Hypertension Mother Family history of elevated blood lipids Family history of heart disease in male family member before age 55 Hypertension Family history of diabetes mellitus in first degree relative Diabetes mellitus Father Cerebrovascular accident Social History Social History Smoking status: Never smoker Second hand tobacco smoke exposure: No Alcohol intake: current Alcohol use details: moderate Do You Feel Safe in your Home?: Yes Lack of Transportation: No Lack of Food: Never True Current Housing: I Have Housing Concerned About Future Housing: No Difficulty Paying Gas/Electric Bills: No Difficulty Paying for Meds: No Currently Unemployed: No Education: High School Diploma/GED Difficulty w/ Childcare or Family Care: No Living arrangements: with family Occupation/Education: occupation Additional occupation/education comments: [employer] Gender identity (if verbalized by the patient): Male Anes - Eval Final PreProcedure Day of Procedure 04/28/25 08:35 Patient weight: obese Heart: regular rate and rhythm Lungs: clear to auscultation Airway: Mallampati scale class 1 Neurological: alert and oriented Last oral intake: >/= 8 hours ASA classification: II Emergent: no Anesthetic plan: proceed Anesthesia type and monitoring: general GIVS and standard monitoring Results Review: All pre-operative results and documents have been reviewed as part of the pre- operative evaluation. Informed Consent: The patient's anesthetic plan and its attendant risks and benefits were discussed with the patient/family/POA. Questions were solicited and answers provided to the satisfaction of the patient/family/POA.
--- NOTE | 2025-04-28 09:31 | P.HP_ITS ---
H&P: HPI History of Present Illness Date/Time: 04/28/25 09:31 Chief Complaint: GERD-diarrhea Narrative: this patient is proximally 8 months with intermittent diarrhea of unclear etiology. He never had a colonoscopy and had negative Cologuard test 2 years ago. In addition he suffers from heartburn, however it is controlled with omeprazole. He is referred for colonoscopy and EGD. Review of Systems Review of Systems: All systems reviewed & are unremarkable except as noted in HPI and below PMFSH Past Medical History Medical History Change in bowel habits Hemorrhoids Incomplete right bundle branch block Skin lesion Diarrhea Abdominal pain Encounter for routine adult health examination with abnormal findings Vitamin D deficiency Prostate cancer screening Pre-diabetes BMI 32.0-32.9,adult Skin lesion of left leg Chronic pain of right knee Chest pain Testosterone deficiency AV block, 1st degree Hypertension Abnormal finding of blood chemistry Low back pain Encounter for routine adult health examination without abnormal findings Colon cancer screening BMI 33.0-33.9,adult Encounter for preventive health examination On termite technician drug therapy GERD (gastroesophageal reflux disease) Hypothyroidism (acquired) Hyperlipidemia Benign essential hypertension History of pituitary adenoma Family History Family History Sibling Hypertension Mother Family history of elevated blood lipids Family history of heart disease in male family member before age 55 Hypertension Family history of diabetes mellitus in first degree relative Diabetes mellitus Father Cerebrovascular accident Social History Social History Smoking status: Never smoker Second hand tobacco smoke exposure: No Alcohol intake: current Alcohol use details: moderate Do You Feel Safe in your Home?: Yes Lack of Transportation: No Lack of Food: Never True Current Housing: I Have Housing Concerned About Future Housing: No Difficulty Paying Gas/Electric Bills: No Difficulty Paying for Meds: No Currently Unemployed: No Education: High School Diploma/GED Difficulty w/ Childcare or Family Care: No Living arrangements: with family Occupation/Education: occupation Additional occupation/education comments: [employer] Gender identity (if verbalized by the patient): Male Meds Home Medications and Allergies Home Medications ?Medication ?Instructions ?Recorded ?Confirmed ?Type needle (disp) 18 G 18 gauge x 1 #100 ea 04/08/2404/28 Rx 1/2 (CareTouch Hypodermic Needle) syringe with needle, safety 3 mL #100 ea 06/22/24 08/ Rx 25 gauge x 5/8 (Easy Touch FlipLock Syringe) cabergoline 0.5 mg tablet 0.5 mg PO 2XW 10/21/2404/28 History omeprazole 40 mg capsule,delayed 40 mg PO DAILY #90 ca ps 10/21/24 04/28/25 Rx release rosuvastatin 10 mg tablet 10 mg PO .qod #45 tabs 10/2104/28/25 Rx losartan 100 mg tablet See Rx Instructions .Route 0 11/11/24 04/28/25 Rx .COMPLEX #90 tabs dicyclomine 10 mg capsule 10 mg PO TID PRN abdominal p ain 01/28/25 04/13/25 Rx #90 caps testosterone cypionate 200 mg/mL 200 mg IM .every 2 we eks #1 mL 03/23/25 04/13/25 Rx intramuscular oil levothyroxine 175 mcg tablet See Rx Instructions .Rout e 03/25/25 04/28/25 Rx (Synthroid) .COMPLEX #90 tabs diltiazem HCl 240 mg See Rx Instructions .Route 0 04/06/25 04/28/25 Rx capsule,extended release 24 hr .COMPLEX #180 caps Allergies Allergy/AdvReac Type Severity Reaction Status Date / Time lisinopril AdvReac Mild Cough Verified 04/28/25 08:23 Vital Signs Vital Signs - 24 hr 04/28/25 08:17 Temperature 97.4 F L Pulse Rate 71 Respiratory Rate 16 Blood Pressure 133/98 H Pulse Oximetry 98 Oxygen Delivery Room Air Exam Const: General: cooperative and healthy appearing Resp: Effort & Inspection: normal respiratory effort and able to speak in complete sentences Auscultation: clear to auscultation bilaterally Cardio: Rate: regular rate Rhythm: regular rhythm GI: Inspection: normal to inspection GI Palp: No No hepatosplenomegaly present Auscultation: normal bowel sounds Rectal Exam: deferred Skin: General skin exam: normal color Psych: Appearance: grossly normal Mental Status: mental status grossly normal Assessment and Plan Assessment and plan (1) Diarrhea: Qualifiers: Diarrhea type: unspecified type Qualified Code(s): R19.7 - Diarrhea, unspecified Code(s): R19.7 - Diarrhea, unspecified Status: Acute Assessment and Plan: The patient is deemed a good candidate for the procedures. Consent signed. Will proceed. (2) GERD (gastroesophageal reflux disease): Qualifiers: Esophagitis presence: without esophagitis Qualified Code(s): K21.9 - Gastro-esophageal reflux disease without esophagitis Code(s): K21.9 - Gastro-esophageal reflux disease without esophagitis Status: Acute
--- NOTE | 2025-04-28 09:54 | S_PTH ---
PATIENT: Rick Caceres LOC: PITA #:[id number] AGE/SX: 54/M ROOM: RE04/28/[address]: Mark Smith MD : 1970 BED: DIS: 04/28/2025 SPEC #: [id number] RECD: 04/28/25 10:23 STATUS: MISA REQ #: [id number] JEFFERSON: 04/28/25 09:[address]: Mark Smith DEPT: [facility] Surgical RECD BY: Kelsi Mortensen ENTERED: 04/28/25 10:23 SP TYPE: Surgical OTHR DR: Jayant Flores MD Tissues: A - Gastric Biopsy B - Gastric Biopsy C - Colon Biopsy D - Colon Biopsy Procedures: Hematoxylin and Eosin Stain Gross and Microscopic Level 4
[2025-04-28 10:12] VITALS: BP 119/88; PULSE 74; RESP 17; O2SAT 95
[2025-04-28 10:22] VITALS: BP 124/91; PULSE 60; RESP 17; O2SAT 100
[2025-04-28 10:32] VITALS: BP 126/89; PULSE 65; RESP 18; O2SAT 100
== END 2025-04-28 10:41 | disposition home or self-care (01) ==
PROVIDERS: PCP Internal Medicine; Visit Provider Internal Medicine Gastroenterology
PROC: 0DJ08ZZ Inspection of Upper Intestinal Tract, Via Natural or Artificial Opening Endoscopic (ICD-10-PCS; CPT 45378; principal; 2025-04-28 09:30)
DX: K21.9 Gastro-esophageal reflux disease without esophagitis (principal); K29.30 Chronic superficial gastritis without bleeding; K64.8 Other hemorrhoids; I10 Essential (primary) hypertension; E03.9 Hypothyroidism, unspecified; E55.9 Vitamin D deficiency, unspecified; R73.03 Prediabetes; E29.1 Testicular hypofunction; G89.29 Other chronic pain; M25.561 Pain in right knee; E66.9 Obesity, unspecified; Z68.32 Body mass index [BMI] 32.0-32.9, adult; Z79.899 Other long term (current) drug therapy; Z82.49 Family history of ischemic heart disease and other diseases of the circulatory system
CPT/HCPCS: 43239; 45380; 88305; J2003; J2704; J7120